=== PATIENT | female | born 1970 | race Caucasian/White ===

== ENCOUNTER → 2017-11-06 12:19 | Outpatient (CLI) | payer OTHER, SELFPAY | PROVIDERS: Family Provider Internal Medicine; PCP Internal Medicine; Visit Provider Internal Medicine | DX: J45.909 Unspecified asthma, uncomplicated (principal) | CPT/HCPCS: 94060; 94727; 94729 ==

== ENCOUNTER 2017-12-02 11:44 | Emergency (ER) | payer OTHER, SELFPAY ==
[2017-12-02 12:08] VITALS: BP 98/72; PULSE 72; RESP 20; TEMP 36.8; O2SAT 98; BMI 40.7
--- NOTE | 2017-12-02 12:17 | HMH.EDUTC ---
[facility] [place] Disposition Clinical Impression: Right-sided low back pain with sciatica Qualifiers: Chronicity: acute Sciatica laterality: sciatica of right side Qualified Code(s): M54.41 - Lumbago with sciatica, right side Disposition: Home, Self-Care Condition on Discharge: Good Prescriptions: Cyclobenzaprine HCl [Cyclobenzaprine 10mg Tab] 10 mg PO TIDP PRN 10 Days #30 tab PRN Reason: back christopher methylPREDNISolone [Medrol] 4 mg PO DAILY 6 Days #21 tab.ds.pk Referrals: Gerardo Erickson [Primary Care Provider] - Time of Disposition: 12:22 Medical Decision Making - Medical Records Medical records reviewed: Yes: I reviewed the patient's medical records. Vital Signs: 12/02/17 12:08 Temperature 98.3 F Temperature Source Temporal Artery Scan Pulse Rate [Left Brachial] 72 Respiratory Rate 20 Blood Pressure [Left Arm] 98/72 Blood Pressure Mean [Left Arm] 80 Blood Pressure Source [Left Arm] Automatic Cuff Blood Pressure Position [Left Arm] Sitting 02 Sat by Pulse Oximetry 98 Oxygen Delivery Method Room Air - Dank Inquiry Pt receiving controlled substance: No [facility] [place] HPI - General Stated complaint: back pain, no ao Time Seen by Provider: 12/02/17 12:04 Mode of Arrival: Ambulatory Source of Information: Patient Limitations: No Limitations Description of Symptoms (Recalled from Triage Doc. by RN): RT LOWER BACK PAIN THAT RADIATES DOWN RT SIDE INTO RT KNEE HEENT Symptoms (Recalled from RN notes): No Resp Symptoms (Recalled from RN notes): No Skin Symptoms (Recalled from RN notes): No MS Symptoms (Recalled from RN notes): Yes (BACK PAIN RADIATING DOWN LEG) Functional Status (Recalled from RN notes): N/A - History of Present Illness Provider Complaint: Back pain X 2 days without injury but now radiating into her right buttock and right thigh. No numbness or tingling. No bowel or bladder complaints. Onset (ago): day(s) (2) Location: back, buttocks, right, lower extremity Severity: moderate Quality: burning, aching Relieving factors: none Exacerbating factors: none Associated symptoms: denies other symptoms Treatments prior to arrival: none - Related Data Home Medications Medication Instructions Recorded Confirmed albuterol sulfate HFA 90 1 puff INHALATION Q6H 10/21/17 mcg/actuation aerosol inhaler cetirizine 10 mg capsule 10 mg PO QDAY 10/21/17 desmopressin 0.1 mg tablet 0.1 mg PO BID 10/21/17 fluticasone 100 mcg-vilanterol 25 1 inh INHALATION Q24H 10/21/17 mcg/dose powder for inhalation fluticasone 50 mcg/actuation nasal 50 mcg INTRANASAL ONCE 10/21/17 spray,suspension hydrocortisone 10 mg tablet 10 mg PO QDAY 10/21/17 levothyroxine 175 mcg tablet 175 mcg PO QDAY tab 10/21/17 nebivolol 5 mg tablet 5 mg PO QDAY 10/21/17 pen injector device 10 subcutaneous See Dose Instructions .ROUTE 10/21/17 .MEDSUPPLY #1 Previous Rx's Medication Instructions Recorded Cyclobenzaprine HCl 10 mg PO TIDP PRN 10 Days #30 tab 12/02/17 [Cyclobenzaprine 10mg Tab] methylPREDNISolone [Medrol] 4 mg PO DAILY 6 Days #21 tab.ds.pk 12/02/17 Allergies Allergy/AdvReac Type Severity Reaction Status Date / Time codeine Allergy Verified 12/02/17 12:16 - Worker's Comp Is this a Worker's Comp case?: No [facility] History I have reviewed the patient's past medical history: Yes Medical History: Reports:: Asthma, Hypertension Denies:: Cancer, Diabetes Mellitus Type 1, Diabetes Mellitus Type 2, MRSA Other Medical History: Reports: Hypothyroidism Laterality Cases: Right: Arthroscopy Knee, Bilateral: Tonsillectomy Other Surgeries: Yes: Other (Lt knee scope, Cholectomy, Pitutary Tumor Resection) Amputation: No Fractures: No - Social History Smoking Status: Never smoker Alcohol Intake: never Substance Use Type: denies use - Psychiatric History Expresses thoughts of harming self/others: None Suicide Plan Description: No Plan Family Hx:: Cancer, Asthma, Heart Attack ROS Obtained: Yes All systems reviewed &
--- NOTE | 2017-12-02 12:20 | ED_ITS ---
[facility] [place] Disposition Clinical Impression: Right-sided low back pain with sciatica Qualifiers: Chronicity: acute Sciatica laterality: sciatica of right side Qualified Code(s) : M54.41 - Lumbago with sciatica, right side Disposition: Home, Self-Care Condition on Discharge: Good Prescriptions: Cyclobenzaprine HCl [Cyclobenzaprine 10mg Tab] 10 mg PO TIDP PRN 10 Days #30 tab PRN Reason: back christopher methylPREDNISolone [Medrol] 4 mg PO DAILY 6 Days #21 tab.ds.pk Referrals: Gerardo Erickson [Primary Care Provider] - Time of Disposition: 12:22 Medical Decision Making - Medical Records Medical records reviewed: Yes: I reviewed the patient's medical records. Vital Signs: 12/02/17 12:08 Temperature 98.3 F Temperature Source Temporal Artery Scan Pulse Rate [Left Brachial] 72 Respiratory Rate 20 Blood Pressure [Left Arm] 98/72 Blood Pressure Mean [Left Arm] 80 Blood Pressure Source [Left Arm] Automatic Cuff Blood Pressure Position [Left Arm] Sitting 02 Sat by Pulse Oximetry 98 Oxygen Delivery Method Room Air - Dank Inquiry Pt receiving controlled substance: No [facility] [place] HPI - General Stated complaint: back pain, no ao Time Seen by Provider: 12/02/17 12:04 Mode of Arrival: Ambulatory Source of Information: Patient Limitations: No Limitations Description of Symptoms (Recalled from Triage Doc. by RN): RT LOWER BACK PAIN THAT RADIATES DOWN RT SIDE INTO RT KNEE HEENT Symptoms (Recalled from RN notes): No Resp Symptoms (Recalled from RN notes): No Skin Symptoms (Recalled from RN notes): No MS Symptoms (Recalled from RN notes): Yes (BACK PAIN RADIATING DOWN LEG) Functional Status (Recalled from RN notes): N/A - History of Present Illness Provider Complaint: Back pain X 2 days without injury but now radiating into her right buttock and right thigh. No numbness or tingling. No bowel or bladder complaints. Onset (ago): day(s) (2) Location: back, buttocks, right, lower extremity Severity: moderate Quality: burning, aching Relieving factors: none Exacerbating factors: none Associated symptoms: denies other symptoms Treatments prior to arrival: none - Related Data Home Medications Medication Instructions Recorded Confirmed albuterol sulfate HFA 90 1 puff INHALATION Q6H 10/21/17 mcg/actuation aerosol inhaler cetirizine 10 mg capsule 10 mg PO QDAY 10/21/17 desmopressin 0.1 mg tablet 0.1 mg PO BID 10/21/17 fluticasone 100 mcg-vilanterol 25 1 inh INHALATION Q24H 10/21/17 mcg/dose powder for inhalation fluticasone 50 mcg/actuation nasal 50 mcg INTRANASAL ONCE 10/21/17 spray,suspension hydrocortisone 10 mg tablet 10 mg PO QDAY 10/21/17 levothyroxine 175 mcg tablet 175 mcg PO QDAY tab 10/21/17 nebivolol 5 mg tablet 5 mg PO QDAY 10/21/17 pen injector device 10 subcutaneous See Dose Instructions .ROUTE 10/21/17 .MEDSUPPLY #1 Previous Rx's Medication Instructions Recorded Cyclobenzaprine HCl 10 mg PO TIDP PRN 10 Days #30 tab 12/02/17 [Cyclobenzaprine 10mg Tab] methylPREDNISolone [Medrol] 4 mg PO DAILY 6 Days #21 tab.ds.pk 12/02/17 Allergies Allergy/AdvReac Type Severity Reaction Status Date / Time codeine Allergy Verified 12/02/17 12:16 - Worker's Comp Is this a Worker's Comp case?: No [facility] History I have
[2017-12-02 12:24] VITALS: BP 98/72; PULSE 72; RESP 20; TEMP 36.8; O2SAT 98
== END 2017-12-02 12:25 | disposition home or self-care (01) ==
PROVIDERS: Emergency Provider Physician Assistant; Family Provider Internal Medicine; PCP Internal Medicine
DX: M54.41 Lumbago with sciatica, right side (principal); I10 Essential (primary) hypertension; J45.909 Unspecified asthma, uncomplicated; Z88.6 Allergy status to analgesic agent
CPT/HCPCS: 99202

== ENCOUNTER 2020-07-24 08:57 | Emergency (ER) | payer OTHER, SELFPAY ==
[2020-07-24 09:16] VITALS: BP 142/77; PULSE 76; RESP 19; TEMP 36.6; O2SAT 98; BMI 37.7
--- NOTE | 2020-07-24 09:24 | HMH.EDUTC ---
[facility] [place] Disposition Clinical Impression: Spasm of muscle of lower back Disposition: Home, Self-Care Condition on Discharge: Good Instructions: Ibuprofen, Cyclobenzaprine, DI for Muscle Spasm Additional Instructions: *Ibuprofen shelly 6 hours with meal as needed for pain/inflammation *Remember you had a Toradol shot in the clinic today, which is similar to Motrin no Motrin or Ibuprofen for the next 8 hours *Not additional anti-inflammatory like motrin, aleve, advil with the above amount of ibuprofen. You can still take Tylenol every 4 hours as needed if you need something else for pain *Ice 20 minutes every 2 hours for the first 48 hours after the initial injury followed by moist heat every 20 minutes 3-4 times a day to affected area *Muscle relaxer every 8 hours as needed for muscle spasms but remember, it WILL cause drowsiness You cannot take it and drive, operate machinery or care for small children. *Keep this area active, no movement leads to more stiffness, However take it easy and avoid heavy lifting pushing or pulling *Follow up with you family doctor if no improvement for further treatment Return if needed Straight to ER if any life threatening symptoms Prescriptions: Cyclobenzaprine HCl [Flexeril 10mg tablet] 10 mg PO TID PRN #15 tab PRN Reason: Muscle Spasm Transmission Status: Received by [facility] #[id number] Referrals: Gerardo Erickson [Primary Care Provider] - As needed Forms: Work/School Release Time of Disposition: 09:47 Medical Decision Making - Dank Inquiry Pt receiving controlled substance: No Dank was queried for this patient: No Vital Signs: 07/24/20 09:16 Temperature 97.8 F Temperature Source Oral Pulse Rate [Radial] 76 Respiratory Rate 19 Blood Pressure [Right Arm] 142/77 H Blood Pressure Mean [Right Arm] 98 Blood Pressure Source [Right Arm] Automatic Cuff Blood Pressure Position [Right Arm] Sitting 02 Sat by Pulse Oximetry 98 Oxygen Delivery Method Room Air Orders (Tests/Meds): ED MEDICATIONS Discontinued Medications Generic Name Dose Route Start Last Admin Trade Name Freq PRN Reason Stop Dose Admin Ketorolac Tromethamine 60 mg 07/24/20 09:43 07/24/20 09:56 Ketorolac 60mg/2ml Vial IM 07/24/20 09:44 60 mg ONCE ONE Administration Methylprednisolone Sodium Succinate 125 mg 07/24/20 09:43 07/24/20 09:55 Methylprednisolone Sod Succ 125mg Vial IM 07/24/20 09:44 125 mg ONCE ONE Administration Medical Decision Narrative: Patient states that she has taken Flexeril before without reaction or complications States that she took Torodol and solu medrol before also without reaction or complications [facility] [place] HPI - General Stated complaint: back spasms Time Seen by Provider: 07/24/20 09:24 Mode of Arrival: Ambulatory Source of Information: Patient Limitations: No Limitations Description of Symptoms (Recalled from Triage Doc. by RN): slipped down one step yesterday and now her back is hurting. No fall. HEENT Symptoms (Recalled from RN notes): No Resp Symptoms (Recalled from RN notes): No Skin Symptoms (Recalled from RN notes): No MS Symptoms (Recalled from RN notes): Yes Functional Status (Recalled from RN notes): wnl - History of Present Illness Provider Complaint: Patient states that she was coming down the steps yesterday when she slipped down a step and landed on her feet but caught herself and feels like she pulled a musle in her lower back States that she went on to work last night and started having muscle spasms so this morning she came in to see if she could get something to help with the spasm denies loss of control of bowel or bladder - Related Data Home Medications Medication Instructions Recorded Confirmed albuterol sulfate 90 mcg/actuation 1 puff INHALATION Q6H 10/21/17 11/25/19 aerosol inhaler cetirizine 10 mg capsule 10 mg PO QDAY 10/21/17 11/25/19 desmopressin 0.1 mg tablet 0.1 mg PO BID 10/21/17 11/25/19 hydrocortisone 10 mg tablet
[2020-07-24 10:13] VITALS: BP 142/77; PULSE 76; RESP 19; TEMP 36.6; O2SAT 98
== END 2020-07-24 10:18 | disposition home or self-care (01) ==
PROVIDERS: Emergency Provider Nurse Practitioner; PCP Internal Medicine
DX: M62.830 Muscle spasm of back (principal); J45.909 Unspecified asthma, uncomplicated; I10 Essential (primary) hypertension; E03.9 Hypothyroidism, unspecified; Z88.5 Allergy status to narcotic agent; Z79.899 Other long term (current) drug therapy
CPT/HCPCS: 96372; 99201

== ENCOUNTER 2021-11-12 12:16 | Emergency (ER) | payer OTHER, SELFPAY ==
[2021-11-12 12:30] VITALS: BP 138/76; PULSE 71; RESP 18; TEMP 36.9; O2SAT 98; BMI 38.7
--- NOTE | 2021-11-12 13:04 | HMH.EDUTC ---
[facility] [place] Disposition Clinical Impression: Sinusitis, acute maxillary Qualifiers: Recurrence: non-recurrent Qualified Code(s): J01.00 - Acute maxillary sinusitis, unspecified Disposition: Home, Self-Care Condition on Discharge: Good Instructions: Sinusitis, DI for Sinusitis Additional Instructions: Start antibiotic patient to take as ordered for a full length of time even if you feel better. Sinus infections do not get better overnight. It may take 2-3 days to notice much improvement so be sure to use conservative measures as discussed for symptoms. Flonase 1 spray each nostril daily to help with nasal congestion, sinus and ear pressure/information Increase fluids Humidifier/vaporizer as needed Tylenol and ibuprofen as needed for fever or pain. If symptoms do not improve or get worse return or be seen in the ER Follow-up with primary care this week Prescriptions: Azithromycin [Zithromax 250mg tab] 250 mg PO DIRECTED #6 tab Prescription Printed Referrals: Gerardo Erickson [Primary Care Provider] - Time of Disposition: 13:10 Medical Decision Making - Dank Inquiry Pt receiving controlled substance: No Vital Signs: 11/12/21 12:30 Temperature 98.4 F Temperature Source Oral Pulse Rate [Right Brachial] 71 Respiratory Rate 18 Blood Pressure [Right Arm] 138/76 Blood Pressure Mean [Right Arm] 96 Blood Pressure Source [Right Arm] Automatic Cuff Blood Pressure Position [Right Arm] Sitting 02 Sat by Pulse Oximetry 98 Oxygen Delivery Method Room Air [facility] [place] HPI - General Chief complaint: Urgent Treatment Center Stated complaint: possible sinus infection Time Seen by Provider: 11/12/21 13:04 Mode of Arrival: Ambulatory Source of Information: Patient Limitations: No Limitations Description of Symptoms (Recalled from Triage Doc. by RN): PATIET C/O FEVER, CONGESTION, SORE THROAT AND WHEEZY SINCE SUNDAY HEENT Symptoms (Recalled from RN notes): Yes Resp Symptoms (Recalled from RN notes): Yes Skin Symptoms (Recalled from RN notes): No MS Symptoms (Recalled from RN notes): No Functional Status (Recalled from RN notes): WNL - History of Present Illness Provider Complaint: 51 yr old female presnets for sinus pressure,congestion, and ear pain - Related Data Home Medications Medication Instructions Recorded Confirmed albuterol sulfate 90 mcg/actuation 1 puff INHALATION Q6H 10/21/17 11/25/19 aerosol inhaler cetirizine 10 mg capsule 10 mg PO QDAY 10/21/17 11/25/19 desmopressin 0.1 mg tablet 0.1 mg PO BID 10/21/17 11/25/19 hydrocortisone 10 mg tablet 10 mg PO QDAY 10/21/17 11/25/19 levothyroxine 175 mcg tablet 175 mcg PO QDAY tab 10/21/17 11/25/19 nebivolol 5 mg tablet 5 mg PO QDAY 10/21/17 11/25/19 pen injector device 10 subcutaneous See Dose Instructions .ROUTE 10/21/17 11/25/19 .MEDSUPPLY #1 albuterol sulfate 5 mg/mL(0.5 %) 2.5 mg INHALATION Q6H 11/25/19 11/25/19 solution for nebulization budesonide-formoterol HFA 160 2 puff INHALATION BID 11/25/19 11/25/19 mcg-4.5 mcg/actuation aerosol inhaler desmopressin 0.2 mg tablet 0.2 mg PO ONCE tab 11/25/19 11/25/19 somatropin 5 mg/1.5 mL (3.3 mg/mL) SQ 11/25/19 11/25/19 subcutaneous cartridge Previous Rx's Medication Instructions Recorded Sulfacetamide Sodium [Bleph-10] 1 drp EYE-BOTH Q3H 7 Days #1 bottle 09/15/19 predniSONE [Deltasone 10mg tablet] 10 mg PO BID 3 Days #6 tab 09/15/19 amoxicillin 500 mg capsule 500 mg PO Q12H 10 Days #20 cap 11/25/19 Cyclobenzaprine HCl [Flexeril 10mg 10 mg PO TID PRN #15 tab 07/24/20 tablet] Azithromycin [Zithromax 250mg 250 mg PO DIRECTED #6 tab 11/12/21 tab] Allergies Allergy/AdvReac Type Severity Reaction Status Date / Time codeine Allergy Verified 11/25/19 10:14 levofloxacin [From Levaquin] Allergy Verified 11/25/19 10:14 - Worker's Comp Is this a Worker's Comp case?: No H History - Hepatitis A Screen Drug use history?: No High risk sexual behaviors?: No History of
[2021-11-12 13:05] VITALS: BP 138/76; PULSE 71; RESP 18; TEMP 36.9; O2SAT 98
== END 2021-11-12 13:11 | disposition home or self-care (01) ==
PROVIDERS: Emergency Provider Nurse Practitioner Family; PCP Internal Medicine
DX: J01.00 Acute maxillary sinusitis, unspecified (principal); I10 Essential (primary) hypertension
CPT/HCPCS: 99202; G0463

== ENCOUNTER 2021-12-14 08:59 | Emergency (ER) | payer OTHER, SELFPAY ==
[2021-12-14 09:17] VITALS: BP 149/96; PULSE 74; RESP 16; TEMP 36.9; O2SAT 98; BMI 35.7
--- NOTE | 2021-12-14 09:52 | HMH.EDUTC ---
[facility] [place] Disposition Clinical Impression: Sinusitis Qualifiers: Sinusitis location: unspecified location Chronicity: acute Recurrence: non-recurrent Qualified Code(s): J01.90 - Acute sinusitis, unspecified Disposition: Home, Self-Care Condition on Discharge: Good Instructions: DI for Sinusitis Additional Instructions: Drink plenty of fluids. Take tylenol or ibuprofen for pain or fever. Take the medications as directed. Follow up with your regular doctor. GO TO THE ER FOR ANY WORSENING SYMPTOMS Prescriptions: Amoxicillin/Potassium Clav [Amox-Clav 875-125 mg Tablet] 1 tab PO BID #20 tab Transmission Status: Received by [facility] #[id number] Benzonatate [Benzonatate 100mg cap] 100 mg PO TIDP PRN #30 cap PRN Reason: Cough Transmission Status: Received by [facility] #[id number] Referrals: Provider,Referral, MD [Primary Care Provider] - Forms: Work/School Release Time of Disposition: 09:54 Medical Decision Making - Medical Records Medical records reviewed: No: I reviewed the patient's medical records. - Dank Inquiry Pt receiving controlled substance: No Vital Signs: 12/14/21 09:17 12/14/21 10:01 Temperature 98.4 F 98.4 F Temperature Source Oral Pulse Rate 74 Pulse Rate [Right Radial] 74 Respiratory Rate 16 16 Blood Pressure 149/96 H Blood Pressure [Right Arm] 149/96 H Blood Pressure Mean [Right Arm] 113 Blood Pressure Source [Right Arm] Automatic Cuff Blood Pressure Position [Right Arm] Sitting 02 Sat by Pulse Oximetry 98 Oxygen Delivery Method Room Air Orders (Tests/Meds): ED MEDICATIONS Discontinued Medications Generic Name Dose Route Start Last Admin Trade Name Freq PRN Reason Stop Dose Admin Ceftriaxone Sodium 1 gm 12/14/21 09:38 12/14/21 09:46 Ceftriaxone 1gm Vial IM 12/14/21 09:39 1 gm ONCE ONE Administration Lidocaine HCl 0 ml 12/14/21 09:38 12/14/21 09:46 Lidocaine 1% 5ml Pf Vial IM 12/14/21 09:39 2 ml ONCE ONE Administration [facility] [place] HPI - General Stated complaint: congestion, sore throat, cough Time Seen by Provider: 12/14/21 09:52 Mode of Arrival: Ambulatory Source of Information: Patient Limitations: No Limitations Description of Symptoms (Recalled from Triage Doc. by RN): C/O sinus congestion, cough, ZACARIAS HEENT Symptoms (Recalled from RN notes): Yes (Sinus congestion, ZACARIAS) Resp Symptoms (Recalled from RN notes): Yes (cough) Skin Symptoms (Recalled from RN notes): No MS Symptoms (Recalled from RN notes): No Functional Status (Recalled from RN notes): n/a - History of Present Illness Provider Complaint: She c/o sinus congestion, sinus pressure and frontal sinus tenderness for the past week. - Related Data Home Medications Medication Instructions Recorded Confirmed albuterol sulfate 90 mcg/actuation 1 puff INHALATION Q6H 10/21/17 11/25/19 aerosol inhaler cetirizine 10 mg capsule 10 mg PO QDAY 10/21/17 11/25/19 desmopressin 0.1 mg tablet 0.1 mg PO BID 10/21/17 11/25/19 hydrocortisone 10 mg tablet 10 mg PO QDAY 10/21/17 11/25/19 levothyroxine 175 mcg tablet 175 mcg PO QDAY tab 10/21/17 11/25/19 nebivolol 5 mg tablet 5 mg PO QDAY 10/21/17 11/25/19 pen injector device 10 subcutaneous See Dose Instructions .ROUTE 10/21/17 11/25/19 .MEDSUPPLY #1 albuterol sulfate 5 mg/mL(0.5 %) 2.5 mg INHALATION Q6H 11/25/19 11/25/19 solution for nebulization budesonide-formoterol HFA 160 2 puff INHALATION BID 11/25/19 11/25/19 mcg-4.5 mcg/actuation aerosol inhaler desmopressin 0.2 mg tablet 0.2 mg PO ONCE tab 11/25/19 11/25/19 somatropin 5 mg/1.5 mL (3.3 mg/mL) SQ 11/25/19 11/25/19 subcutaneous cartridge Previous Rx's Medication Instructions Recorded Sulfacetamide Sodium [Bleph-10] 1 drp EYE-BOTH Q3H 7 Days #1 bottle 09/15/19 predniSONE [Deltasone 10mg tablet] 10 mg PO BID 3 Days #6 tab 09/15/19 amoxicillin 500 mg capsule 500 mg PO Q12H 10 Days #20 cap 11/25/19 Cyclobenzaprine HCl [Flexeril 10mg
[2021-12-14 10:01] VITALS: BP 149/96; PULSE 74; RESP 16; TEMP 36.9; O2SAT 98
== END 2021-12-14 10:02 | disposition home or self-care (01) ==
PROVIDERS: Emergency Provider Nurse Practitioner Family
DX: J01.90 Acute sinusitis, unspecified (principal)
CPT/HCPCS: 96372; 99212; G0463; J0696

== ENCOUNTER 2022-06-05 11:12 | Emergency (ER) | payer OTHER, SELFPAY ==
[2022-06-05 13:10] VITALS: BP 141/78; PULSE 69; RESP 18; TEMP 36.9; O2SAT 96; BMI 36.3
--- NOTE | 2022-06-05 13:34 | EXP.UTC ---
Discharge Plan Disposition Patient Disposition: Home, Self-Care Condition: Good Prescriptions Prescriptions: New amoxicillin-pot clavulanate 875-125 mg Tablet 1 tab PO Q12H 7 Days Qty: 14 0RF No Action desmopressin [DDAVP] 0.1 mg tablet 0.1 mg PO BID levothyroxine [Levoxyl] 175 mcg tablet 175 mcg PO QDAY nebivolol [Bystolic] 5 mg tablet 5 mg PO QDAY hydrocortisone 10 mg tablet 10 mg PO QDAY albuterol sulfate [ProAir HFA] 90 mcg/actuation HFA aerosol inhaler 1 puff INHALATION Q6H cetirizine [Zyrtec] 10 mg capsule 10 mg PO QDAY (DME) pen injector device 10 pen injector See Dose Instructions .ROUTE .MEDSUPPLY Qty: 1 Rx Instructions: As directed somatropin 5 mg/1.5 mL (3.3 mg/mL) cartridge SQ desmopressin 0.2 mg tablet 0.2 mg PO ONCE budesonide-formoterol [Symbicort] 160-4.5 mcg/actuation HFA aerosol inhaler 2 puff INHALATION BID albuterol sulfate 5 mg/mL solution for nebulization 2.5 mg INHALATION Q6H amoxicillin 500 mg capsule 500 mg PO Q12H 10 Days Qty: 20 0RF benzonatate 100 MG capsule 100 mg PO TIDP PRN (Reason: Cough) Qty: 30 0RF amoxicillin-pot clavulanate 1 EACH tablet 1 tab PO BID Qty: 20 0RF prednisone 10 MG tablet 10 mg PO BID 3 Days Qty: 6 0RF sulfacetamide sodium 5 ML drops 1 drp EYE-BOTH Q3H 7 Days Qty: 1 0RF cyclobenzaprine 10 MG tablet 10 mg PO TID PRN (Reason: Muscle Spasm) Qty: 15 0RF azithromycin 250 MG tablet 250 mg PO DIRECTED Qty: 6 0RF Rx Instructions: Take two (2) tablets on day #1, then one (1) tablet day #2 thru #5 Referrals Follow up/Referrals: Provider,Referral, MD [Primary Care Provider] - See instructions Clinical Impressions Clinical Impression: Sinusitis Instructions Patient Instructions: Sinus Headache, DI for Sinusitis Discharge ED Provider: Echo Acosta [facility] [place] HPI General Stated complaint: sinus infection Mode of Arrival: Ambulatory Source of Information: Patient Limitations: No Limitations Time Seen by Provider: 06/05/22 13:45 Description of Symptoms (Recalled from Triage Doc. by RN): PATIENT C/O CONGESTION AND DRY COUGH X 3 DAYS HEENT Symptoms (Recalled from RN notes): Yes Resp Symptoms (Recalled from RN notes): Yes Skin Symptoms (Recalled from RN notes): No MS Symptoms (Recalled from RN notes): No Functional Status (Recalled from RN notes): WNL History of Present Illness Provider Complaint: Patient states that she gets sinus infections several times a year and feels like she has one now States that she has been having pain and pressure behind her eyes that has continued to get worse over the last week States that today she noticed her mucous had changed Related Data Home Medications Medication Instructions Recorded Confirmed albuterol sulfate 90 mcg/actuation 1 puff inhalation Q6H 10/21/17 11/25/19 aerosol inhaler (ProAir HFA) cetirizine 10 mg capsule (Zyrtec) 10 mg PO QDAY 10/21/17 11/25/19 desmopressin 0.1 mg tablet (DDAVP) 0.1 mg PO BID 10/21/17 11/25/19 hydrocortisone 10 mg tablet 10 mg PO QDAY 10/21/17 11/25/19 levothyroxine 175 mcg tablet 175 mcg PO QDAY 10/21/17 11/25/19 (Levoxyl) nebivolol 5 mg tablet (Bystolic) 5 mg PO QDAY 10/21/17 11/25/19 pen injector device 10 subcutaneous ##1 10/21/17 11/25/19 albuterol sulfate 5 mg/mL(0.5 %) 2.5 mg inhalation Q6H 11/25/19 11/25/19 solution for nebulization budesonide-formoterol HFA 160 2 puff inhalation BID 11/25/19 11/25/19 mcg-4.5 mcg/actuation aerosol inhaler (Symbicort) desmopressin 0.2 mg tablet 0.2 mg PO ONCE 11/25/19 11/25/19 somatropin 5 mg/1.5 mL (3.3 mg/mL) SQ 11/25/19 11/25/19 subcutaneous cartridge Previous Rx's Medication Instructions Recorded prednisone 10 mg tablet 10 mg PO BID 3 days #6 tabs 09/15/19 sulfacetamide sodium 10 % eye drops 1 drp EYE-BOTH Q3H 7 days ##1 09/15/19 amoxicillin 500 mg capsule 500 mg PO Q12H sinusitis 10 days 0
[2022-06-05 14:05] VITALS: BP 141/78; PULSE 69; RESP 18; TEMP 36.9; O2SAT 96
== END 2022-06-05 14:22 | disposition home or self-care (01) ==
PROVIDERS: Emergency Provider Nurse Practitioner
DX: J01.90 Acute sinusitis, unspecified (principal)
CPT/HCPCS: 96372; 99212; G0463

== ENCOUNTER 2022-06-08 18:15 | Observation (INO) | payer BC, SELFPAY ==
[2022-06-08] VITALS (12 sets, daily range): BP systolic 81–153; BP diastolic 23–115; PULSE 72–142; RESP 18–31; TEMP 37.7–38.3; O2SAT 92–98; BMI 36.3; BMI 36.1
--- NOTE | 2022-06-08 18:30 | XR_ITS ---
PROCEDURE INFORMATION: Exam: XR Chest Exam date and time: 06/08/2022 6:29 PM Age: 52 years old Clinical indication: Pain; Chest pressure; Additional info: SOB TECHNIQUE: Imaging protocol: Radiologic exam of the chest. Views: 2 views. COMPARISON: No relevant prior studies available. FINDINGS: Lungs: Asymmetric hazy right central and lower pulmonary airspace opacity, and asymmetric interstitial prominence in the right lung compared with left, suspicious for pneumonia, less likely would be asymmetric edema. Lung volumes appear normal. Pleural spaces: Likely layering right pleural effusion; lateral view shows some trace fluid in the minor fissure, and there is wedge-shaped 9 cm opacity in the anterior lower chest which is probably some fluid tracking up the major fissure. No pleural effusion is seen on the left. No pneumothorax. Heart/Mediastinum: The heart is not enlarged. Asymmetric right hilar soft tissue fullness compared with left, which could be due to underlying adenopathy or perihilar pneumonia/edema. Bones/joints: Osteopenia/osteoporosis. Thoracic kyphosis with mild chronic appearing anterior wedge deformities. Multilevel disc narrowing and spondylosis. Soft tissues: Right upper quadrant abdominal surgical clips, correlate for cholecystectomy. IMPRESSION: 1. Hazy airspace disease in the central and lower right lung, correlate for pneumonia versus asymmetric edema. 2. Right pleural effusion. 3. Slight asymmetric right hilar fullness, which could be due to perihilar infiltrate or adenopathy.
--- NOTE | 2022-06-08 19:08 | EXP.UTC ---
Discharge Plan Disposition Patient Disposition: Admitted As Inpatient Condition: Fair Prescriptions Prescriptions: No Action desmopressin [DDAVP] 0.1 mg tablet 0.1 mg PO BID levothyroxine [Levoxyl] 175 mcg tablet 175 mcg PO DAILY hydrocortisone 10 mg tablet 10 mg PO BID albuterol sulfate [ProAir HFA] 90 mcg/actuation HFA aerosol inhaler 1 puff INHALATION Q6H cetirizine [Zyrtec] 10 mg capsule 10 mg PO DAILY (DME) pen injector device 10 pen injector See Dose Instructions .ROUTE .MEDSUPPLY Qty: 1 Rx Instructions: As directed desmopressin 0.2 mg tablet 0.2 mg PO ONCE budesonide-formoterol [Symbicort] 160-4.5 mcg/actuation HFA aerosol inhaler 2 puff INHALATION BID albuterol sulfate 5 mg/mL solution for nebulization 2.5 mg INHALATION Q6H amoxicillin-pot clavulanate 875-125 mg tablet 875 tab PO BID Label Comments: TAKE 1 TABLET BY MOUTH TWICE DAILY Norditropin 8 mg Recon Soln 0.8 mg SQ DAILY ondansetron 4 mg Tablet,Disintegrating 4 mg PO Q6H PRN (Reason: Nausea) nebivolol [Bystolic] 5 mg Tablet 5 mg PO DAILY Zyrtec 10 mg Capsule 10 mg PO DAILY Referrals Follow up/Referrals: Gerardo Erickson MD [Primary Care Provider] - See instructions Clinical Impressions Clinical Impression: CAP (community acquired pneumonia), SIRS (systemic inflammatory response syndrome), Obesity (BMI 30-39.9), Atrial arrhythmia Discharge ED Provider: Ramesh Haskins [facility] HPI <Elroy Dior APRN - Last Filed: 06/08/22 20:49> General Chief complaint: Shortness of Breath/Dyspnea Stated complaint: SOA, CONGESTION, Mode of Arrival: Ambulatory Source of Information: Patient Limitations: No Limitations Time Seen by Provider: 06/08/22 19:33 Description of Symptoms (Recalled from Triage Doc. by RN): pt comes in with complaints of congestion, shortness of air, dehydration, nausea, vomitting. pt was seen here sunday and sunday and pt states that she is not getting any better. HEENT Symptoms (Recalled from RN notes): Yes Resp Symptoms (Recalled from RN notes): Yes Skin Symptoms (Recalled from RN notes): No MS Symptoms (Recalled from RN notes): No Functional Status (Recalled from RN notes): n/a History of Present Illness Provider Complaint: She c/o cough and chest congestion for the past 1 week. She denies fever or chills. She has a history of copd and she gets pneumonia fairly frequently. She denies any known covid-19 exposure. Related Data Home Medications Medication Instructions Recorded Confirmed albuterol sulfate 90 mcg/actuation 1 puff inhalation Q6H COPD 10/21/17 06/08/22 aerosol inhaler (ProAir HFA) cetirizine 10 mg capsule (Zyrtec) 10 mg PO DAILY allergies 10/21/17 06/08/22 desmopressin 0.1 mg tablet (DDAVP) 0.1 mg PO BID diabetes insipidus 10/21/17 06/08/22 hydrocortisone 10 mg tablet 10 mg PO BID adrenal insufficiency 10/21/17 06/08/22 levothyroxine 175 mcg tablet 175 mcg PO DAILY hypothyroidism 10/21/17 06/08/22 (Levoxyl) pen injector device 10 subcutaneous ##1 10/21/17 11/25/19 albuterol sulfate 5 mg/mL(0.5 %) 2.5 mg inhalation Q6H COPD 11/25/19 06/08/22 solution for nebulization budesonide-formoterol HFA 160 2 puff inhalation BID Asthma 11/25/19 06/08/22 mcg-4.5 mcg/actuation aerosol inhaler (Symbicort) desmopressin 0.2 mg tablet 0.2 mg PO ONCE diabetes insipidus 11/25/19 06/08/22 amoxicillin 875 mg-potassium 875 tab PO BID sinusitis 06/08/22 06/08/22 clavulanate 125 mg tablet cetirizine 10 mg capsule (Zyrtec) 10 mg PO DAILY allergies 06/08/22 06/08/22 nebivolol 5 mg tablet (Bystolic) 5 mg PO DAILY htn 06/08/22 06/08/22 ondansetron 4 mg disintegrating 4 mg PO Q6H PRN Nausea 06/08/22 06/08/22 tablet somatropin 8 mg subcutaneous 0.8 mg SQ DAILY adrenal 06/08/22 06/08/22 solution insufficiency Allergies Allergy/AdvReac Type Severity Reaction Status Date / Time codeine Allergy Verified 11/25/19 10:14 levofloxaci
[2022-06-08 20:39] LABS: Coronavirus 19, PCR Not Detected (NotDetected); Influenza A, PCR Not Detected (NotDetected); Influenza B, PCR Not Detected (NotDetected); Microscopic, Urine URINE MICROSCOPIC (MICROSCOPIC)
[2022-06-08 20:40] LABS: Basophils % 0.3 % (0.1-2.0); Eosinophils # 0.4 K/mm3 (0.0-0.4); Eosinophils % 3.2 % (0.1-12.0); Hematocrit 42.2 % (37.0-47.0); Hemoglobin 13.2 g/dL (12.2-16.2); Lymphocytes # 1.9 K/mm3 (0.7-4.5); Lymphocytes % 13.8 % (10-50); Mean Corpuscular HGB Conc 31.2 g/dL (31.8-35.4); Mean Corpuscular Hemoglobin 28.3 pg (27.0-31.2); Mean Corpuscular Volume 90.6 fl (81-99); Mean Platelet Volume 7.7 fl (7.4-10.4); Monocytes # 0.4 K/mm3 (0.1-1.0); Monocytes % 2.6 % (1.7-9.3); Neutrophils # 10.8 K/mm3 (1.8-7.8); Neutrophils % 80.1 % (37.0-80.0); Platelet Count 433 K/mm3 (142-424); Red Blood Count 4.66 M/mm3 (4.20-5.40); Red Cell Distribution Width 13.2 % (11.5-17.5); White Blood Count 13.5 K/mm3 (4.8-10.8)
[2022-06-08 20:43] LABS: Appearance,Urine CLEAR (Clear); Bilirubin,Urine Negative (Negative); Blood, Urine Negative (Negative); Color,Urine YELLOW (Yellow); Glucose,Urine (UA) Negative (Negative); Ketones,Urine Negative (Negative); Leukocyte Esterase,Urine 1+ (Negative); Nitrate,Urine Negative (Negative); Protein,Urine Negative (Negative); Specific Gravity, Urine <= 1.005 (1.005-1.030); Urobilinogen,Urine 0.2 EU/dl (0.2)
[2022-06-08 20:45] LABS: Urine Pregnancy, HCG Qual. Negative (Negative)
[2022-06-08 20:49] LABS: Alanine Aminotransferase 12 U/L (12-78); Albumin/Globulin Ratio 1.2 (1.1-1.8); Alkaline Phosphatase 145 U/L (38-126); Anion Gap 8.7 mEq/L (5-15); Aspartate Amino Transferase 21 U/L (14-36); Bilirubin,Total 1.1 mg/dl (0.2-1.3); Blood Urea Nitrogen 8 mg/dl (7-17); Calcium 8.6 mg/dl (8.4-10.2); Carbon Dioxide 34 mmol/L (22.0-30.0); Chloride 102 mmol/L (98-107); Creatinine Clearance Estimated 139 mL/min (50-200); Estimated Glomerular Filt Rate 76 ml/min (>60); GFR (African American) 92 ML/MIN (>60); Globulin 3.3 g/dL (1.3-3.2); Glucose 100 mg/dl (74-100); Potassium 3.7 mmoL/L (3.5-5.1); Sodium 141 mmol/L (136-145); Total Protein,Serum 7.3 g/dl (6.3-8.2)
[2022-06-08 20:50] LABS: Bacteria,Urine Trace /lpf; Lactic Acid 0.9 mmol/L (0.7-2.1); RBC,Urine Occasional #/hpf (0-3)
[2022-06-08 20:55] LABS: C-Reactive Protein 90.3 mg/L (0-4)
[2022-06-08 21:04] LABS: ABG Base Excess 1.3 mmol/L (-2.4-2.3); ABG HCO3 25.8 mmhg (22.0-26.0); ABG Oxygen Saturation 96 % (90-100); ABG PCO2 41.3 mmhg (35.0-45.0); ABG PH 7.41 mmol/L (7.35-7.45); ABG PO2 76.9 mmhg (80-100); ABG TCO2 27.1 mmhg (23-27)
[2022-06-08 21:05] LABS: Allen's Test Acceptable; Oxygen 2LPM %; Source Right Radial
[2022-06-08 21:08] LABS: Procalcitonin 0.428 ng/mL (0.0-2.0)
[2022-06-08 21:16] LABS: Erythrocyte Sedimentation Rate 47 mm/hr (0-20)
--- NOTE | 2022-06-08 21:39 | ECG_ITS ---
APPROVED REPORT Exam: Resting ECG HR:137 bpm ECG Measurements Heart Rate 137 AXES QRSd 98 QRS 64 QT 292 T 59 QTc 372 Conclusion Sinus Tachycardia ABNORMAL RHYTHM ECG UNCONFIRMED REPORT Electronically signed by : Harsh Skelton MD 06/09/2022 17:09:02
--- NOTE | 2022-06-08 22:07 | PC.NURSE ---
patient was requesting her night time hydrocortisone, however, pt has already had solumedrol so md wants nighttime hydrocortisone held.
--- NOTE | 2022-06-08 22:08 | PC.NURSE ---
patient was noted to have an elevated heartrate at 2140. Patient was c/o being unable to breathe and having chest pain with diaphoresis. was immediately notified along with respiratory therapy. Oxygen source changed from 2l nasal cannula to a nonrebreather. Pt was breathing roughly 30 times per minute. Oxygen was 91%. was notified by at 2144 with an image of a new ekg performed. EKG indicated sinus tach as p waves were noted by md and cardiology. 2.5 IV metoprolol ordered per MD with 40mg IV lasix. Patient tolerated the medication well and her heartrate decreased from 130 NS to 88 NS. BNP and troponin's were added to lab order.
--- NOTE | 2022-06-08 22:17 | PC.NURSE ---
Spoke with Mic at [facility] regarding patients hydrocortisone dosing for pm. Per [facility], the 10mg hydrocortisone is a small dose and it would be safe to skip that dose for tonight.
[2022-06-08 22:30] LABS: T4 (Thyroxine) 11.9 ug/dl (5.53-11.0)
[2022-06-08 22:34] LABS: Troponin I < 0.01 ng/ml (0.00-0.034)
--- NOTE | 2022-06-08 22:38 | PC.NURSE ---
PT CHANGED FROM SIMPLE MASK TO O2 5L NC. WCM.
[2022-06-08 22:43] LABS: Thyroid Stimulating Hormone < 0.02 uIU/mL (0.465-4.68)
[2022-06-09] VITALS (11 sets, daily range): BP systolic 100–137; BP diastolic 56–67; PULSE 70–98; RESP 16–22; TEMP 36.6–37; O2SAT 92–96; BMI 36.9
--- NOTE | 2022-06-09 00:37 | PC.NURSE ---
PT ARRIVED TO FLOOR VIA WHEEL CHAIR AT THIS TIME
--- NOTE | 2022-06-09 05:57 | PC.NURSE ---
Patient admitted to floor. Patient a&o x4. Patient tolerating 2l nc with sats above 90%. Expiatory ronchi noted bilaterally. VSS.
[2022-06-09 06:55] LABS: Basophils % 0.2 % (0.1-2.0); Eosinophils % 0.3 % (0.1-12.0); Hematocrit 44.9 % (37.0-47.0); Hemoglobin 13.7 g/dL (12.2-16.2); Lymphocytes # 0.6 K/mm3 (0.7-4.5); Lymphocytes % 4.2 % (10-50); Mean Corpuscular HGB Conc 30.5 g/dL (31.8-35.4); Mean Corpuscular Volume 91.9 fl (81-99); Mean Platelet Volume 9.4 fl (7.4-10.4); Monocytes # 0.2 K/mm3 (0.1-1.0); Monocytes % 1.1 % (1.7-9.3); Neutrophils # 13.6 K/mm3 (1.8-7.8); Neutrophils % 94.3 % (37.0-80.0); Platelet Count 442 K/mm3 (142-424); Red Blood Count 4.88 M/mm3 (4.20-5.40); Red Cell Distribution Width 13.2 % (11.5-17.5); White Blood Count 14.4 K/mm3 (4.8-10.8)
[2022-06-09 07:04] LABS: MANUAL DIFFERENTIAL MANUAL DIFFERENTIAL (MANUAL DIFF)
[2022-06-09 07:24] LABS: Lymphocytes % 8 % (10-50); Monocytes % 1 % (2-9); Neutrophils % 91 % (42-76); Platelet Estimate Normal; RBC Morphology Normal; Total Cells Counted 100
[2022-06-09 07:25] LABS: Chloride 107 mmol/L (98-107); Sodium 145 mmol/L (136-145)
[2022-06-09 07:26] LABS: Potassium 4.3 mmoL/L (3.5-5.1)
[2022-06-09 07:29] LABS: Anion Gap 15.3 mEq/L (5-15); Blood Urea Nitrogen 14 mg/dl (7-17); Calcium 8.7 mg/dl (8.4-10.2); Carbon Dioxide 27 mmol/L (22.0-30.0); Creatinine Clearance Estimated 142 mL/min (50-200); Estimated Glomerular Filt Rate 76 ml/min (>60); GFR (African American) 92 ML/MIN (>60); Glucose 175 mg/dl (74-100)
--- NOTE | 2022-06-09 07:35 | P.CONPHA_ITS ---
[facility] Pharmacy VTE Monitoring Patient Demographics Admission date: 06/09/22 Report Date: 06/09/22 Time: 07:35 Patient Allergies codeine Allergy (Verified 11/25/19 10:14) levofloxacin [From Levaquin] Allergy (Verified 11/25/19 10:14) Height: 1.7 m Weight: 106.764 kg Current Active Problems (Updated 06/08/22 @ 23:14 by Ramesh Haskins MD) CAP (community acquired pneumonia) (Acute) SIRS (systemic inflammatory response syndrome) (Acute) Obesity (BMI 30-39.9) (Acute) Atrial arrhythmia (Acute) VTE Risk Labs: VTE Related Lab Results Hgb 13.7 g/dL (12.2-16.2) 06/09/22 05:30 Hct 44.9 % (37.0-47.0) 06/09/22 05:30 Plt Count 442 K/mm3 (142-424) H 06/09/22 05:30 BUN 14 mg/dl (7-17) D 06/09/22 05:30 Creatinine 0.80 mg/dl (0.52-1.04) 06/09/22 05:30 Estimated Creat Clear 142 mL/min (50-200) 06/09/22 05:30 Was VTE Risk Assessment Performed: Yes VTE Score: 4 VTE Risk Level: Low Risk Prophylaxis VTE Prophylaxis Ordered?: Yes Types of VTE Prophylaxis: TEDS Thigh High Location of Applied Device: Bilateral Lower Extremeties
[2022-06-09 08:09] LABS: Magnesium 1.8 mg/dl (1.6-2.3)
--- NOTE | 2022-06-09 08:36 | EXP.HP ---
History of Present Illness *Admission Date: 06/09/22 *Reason for visit:: shortness of breath *History of present illness: Ms. 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 She states she was being treated with Augmentin for sinus infection for the previous 3 to 4 days. Shortness of breath had sudden onset and was severe. She tried her duo nebs at home with no improvement. She was able to drink fluids on Sunday but she was unable to eat. She denied having any fever, nausea, vomiting, or diarrhea. With evaluation in the emergency room she was found to have a temperature of 100.9 ABGs showed a pH of 7.41 PCO2 of 41.3, PO2 of 76.9 and a bicarb of 25.8. She did developed an atrial arrhythmia with a DuoNeb in the ER. Patient states she felt like she was going to with a slow heart rate and decrease in her O2 sats. Documentation from the ER indicates that she received metoprolol resulting in a sinus rhythm. EKG during episode showed SVT at 150 Chest x-ray revealed the following:IMPRESSION: 1. Hazy airspace disease in the central and lower right lung, correlate for pneumonia versus asymmetric edema. 2. Right pleural effusion. 3. Slight asymmetric right hilar fullness, which could be due to perihilar infiltrate or adenopathy. on admission white blood cell count was 13,500 and this a.m. is 14,400. This a.m. patient is still somewhat short of breath with any activity. She had to take a rest from eating her breakfast. She has some cough which is mostly nonproductive. She was able to sleep some during the night. She denies any chest pain. [facility] Medical History (Updated 06/09/22 @ 21:36 by Alverto Becker MD) Acute asthma exacerbation Acute respiratory failure with hypoxia Adrenal insufficiency Asthma COPD (chronic obstructive pulmonary disease) Diabetes insipidus History of pneumonia Hypertension Panhypopituitarism Thyroid disease Surgical History (Updated 06/09/22 @ 08:55 by Olesya Armenta APRN) History of cholecystectomy History of surgical removal of pituitary gland History of tonsillectomy S/P tympanic tube insertion Family History (Updated 06/09/22 @ 08:56 by Olesya Armenta APRN) Coronary artery disease Social History Smoking Status: Never smoker alcohol intake: never substance use type: denies use current occupational status: employed Travel in the last 8 weeks: None household members: family housing: house Review of Systems Constitutional Constitutional: Denies body ache(s), Reports fatigue, Denies fever(s) and Reports headache(s) Eyes Eyes: Denies change in vision ENT Ears, Nose, Mouth, and Throat: Denies otalgia, Reports headache(s) and Denies sore throat *Cardiovascular Cardiovascular: Reports chest pain ( with episode in the emergency room), Reports dyspnea, Reports dyspnea on exertion and Reports leg edema *Respiratory Respiratory: Reports chest congestion, Reports cough, Reports dyspnea and Reports dyspnea on exertion *Gastrointestinal Gastrointestinal: Denies abdominal pain, Denies change in stool character, Denies heartburn, Denies nausea and Denies vomiting *Genitourinary Genitourinary: Denies difficulty voiding *Musculoskeletal Musculoskeletal: Denies abnormal gait and Denies muscle weakness *Neurologic Neurologic: Denies abnormal gait, Reports headache(s) and Denies paresthesias Endocrine Endocrine: Reports fatigue Meds Home Medications and Allergies Home Medications Medication Instructions Recorded Confirmed Type albuterol sulfate 90 mcg/actuation 1 puff inhalation Q6H Asthma 10/21/17 06/08/22 History aerosol i
--- NOTE | 2022-06-09 09:39 | EXP.PULM.CON ---
History of Present Illness History of present illness: Ms. Copeland is a 52-year-old female with reported history of asthma panhypopituitarism, recent history of sinusitis status post Augmentin presents worsening respiratory distress shortness of breath and was admitted for further management and pulmonary was consulted. Dyspnea worsens exertional pain relieved by taking rest PFSH [facility] Medical History (Updated 06/09/22 @ 12:02 by Emery Dutta MD) Acute asthma exacerbation Acute respiratory failure with hypoxia Adrenal insufficiency Asthma COPD (chronic obstructive pulmonary disease) Diabetes insipidus History of pneumonia Hypertension Panhypopituitarism Thyroid disease Surgical History (Updated 06/09/22 @ 08:55 by Olesya Armenta APRN) History of cholecystectomy History of surgical removal of pituitary gland History of tonsillectomy S/P tympanic tube insertion Family History (Updated 06/09/22 @ 08:56 by Olesya Armenta APRN) Other Coronary artery disease Social History Smoking Status: Never smoker alcohol intake: never substance use type: denies use current occupational status: employed Travel in the last 8 weeks: None household members: family housing: house Review of Systems Constitutional Constitutional: Reports fatigue and Reports fever(s) Eyes Eyes: Denies eye discharge, Denies dry eyes, Denies irritation and Denies itchy eyes ENT Ears, Nose, Mouth, and Throat: Denies lip swelling and Denies throat swelling *Cardiovascular Cardiovascular: Reports dyspnea and Reports dyspnea on exertion *Respiratory Respiratory: Reports chest congestion, Reports cough, Reports dyspnea, Reports dyspnea on exertion, Reports excessive phlegm production and Reports wheezing *Gastrointestinal Gastrointestinal: Denies abdominal pain, Denies belching and Denies cramping *Musculoskeletal Musculoskeletal: Reports muscle weakness *Neurologic Neurologic: Denies paresthesias Psychiatric Psychiatric: Denies homicidal ideation and Denies suicidal ideation Endocrine Endocrine: Reports fatigue and Denies heat intolerance Hematologic/Lymphatic Hematologic/Lymphatic: Denies easy bleeding and Denies lymphadenopathy Allergic/Immunologic Allergic/Immunologic: Denies itchy eyes, Denies lip swelling, Denies throat swelling and Reports wheezing Pulmonology Exam Inpatient Vital signs and Labs for Last 24 Hours: Temp Pulse Resp BP Pulse Ox 97.8 F 75 18 137/58 L 92 L 06/09/22 04:00 06/09/22 04:00 06/09/22 04:00 06/09/22 04:00 06/09/22 04:00 Laboratory Results - last 24 hr 06/08/22 20:21: WBC 13.5 H, RBC 4.66, Hgb 13.2, Hct 42.2, MCV 90.6, MCH 28.3, MCHC 31.2 L, RDW 13.2, Plt Count 433 H, MPV 7.7, Neut % (Auto) 80.1 H, Lymph % (Auto) 13.8, [place] % (Auto) 2.6, Eos % (Auto) 3.2, Baso % (Auto) 0.3, Neut # (Auto) 10.8 H, Lymph # (Auto) 1.9, [place] # (Auto) 0.4, Eos # (Auto) 0.4, Baso # (Auto) 0.0, ESR 47 H 06/08/22 20:21: Sodium 141, Potassium 3.7, Chloride 102, Carbon Dioxide 34 H, Anion Gap 8.7, BUN 8, Creatinine 0.80, Estimated Creat Clear 139, Estimated GFR 76, Est GFR ( Amer) 92, Glucose 100, Calcium 8.6, Total Bilirubin 1.1, AST 21, ALT 12, Alkaline Phosphatase 145 H, C-Reactive Protein 90.3 H, Total Protein 7.3, Albumin 4.0, Globulin 3.3 H, Albumin/Globulin Ratio 1.2, Procalcitonin 0.428 06/08/22 20:21: Lactate 0.9 06/08/22 20:21: SARS-CoV-2 (PCR) Not detected, Influenza A Untype (PCR) Not detected, Influenza Type B (PCR) Not detected 06/08/22 20:21: Urine Color Yellow, Urine Appearance Clear, Urine pH 7.0, Ur Specific [place] <= 1.005, Urine Protein Negative, Urine Glucose (UA) Negative, Urine Ketones Negative, Urine Blood Negative, Urine Nitrate Negative, Urine Bilirubin Negative, Urine Urobilinogen 0.2, Ur Leukocyte Esterase 1+ A, Urine RBC Occasional, Urine WBC 5-10, Ur Squamous Epith Cells 5-10, Urine Bacteria Trace 06/08/22 20:21: Urine HCG, Qual Negative 06/08/22 2
--- NOTE | 2022-06-09 09:46 | ECG_ITS ---
APPROVED REPORT Exam: Resting ECG HR:75 bpm ECG Measurements Heart Rate 75 AXES MT 176 P 59 QRSd 118 QRS 72 QT 433 T 52 QTc 461 Conclusion SINUS RHYTHM POSSIBLE LATERAL MYOCARDIAL INFARCTION , PROBABLY OLD [30 ms Q WAVE IN I/aVL/V5/V6] BORDERLINE ECG UNCONFIRMED REPORT Electronically signed by : Harsh Skelton MD 06/10/2022 16:28:01
--- NOTE | 2022-06-09 12:41 | PC.NURSE ---
room air saturation 93%
--- NOTE | 2022-06-09 16:06 | PC.NURSE ---
PT IS SITTING UP IN THE CHAIR. ALERT AND ORIENTED X4. AMBULATES IN THE ROOM AND TO THE BATHROOM. ROOM AIR SATURATION 93%. LUNG SOUNDS HAVE SCATTERED WHEEZES. MILD SWELLING NOTED TO BLE. ABDOMEN SOFT/NON TENDER WITH ACTIVE BOWEL SOUNDS. VSS. WILL CONTINUE TO MONITOR.
[2022-06-10] VITALS (15 sets, daily range): BP systolic 121–173; BP diastolic 54–84; PULSE 68–100; RESP 16; TEMP 36.6–37; O2SAT 91–98; BMI 36.9
--- NOTE | 2022-06-10 04:47 | PC.NURSE ---
Patient a&o x4. Patient states she is feeling much better. She has tolerated RA throughout shift. Patient able to shower independently. VSS. Administered ABX per dec. scattered wheezing and ronchi noted.
[2022-06-10 07:53] LABS: Basophils % 0.1 % (0.1-2.0); Eosinophils # 0.1 K/mm3 (0.0-0.4); Eosinophils % 0.7 % (0.1-12.0); Hematocrit 36.9 % (37.0-47.0); Hemoglobin 11.4 g/dL (12.2-16.2); Lymphocytes # 0.7 K/mm3 (0.7-4.5); Mean Corpuscular HGB Conc 30.8 g/dL (31.8-35.4); Mean Corpuscular Hemoglobin 27.7 pg (27.0-31.2); Mean Platelet Volume 8.5 fl (7.4-10.4); Monocytes # 0.2 K/mm3 (0.1-1.0); Monocytes % 1.4 % (1.7-9.3); Neutrophils # 16.1 K/mm3 (1.8-7.8); Neutrophils % 93.9 % (37.0-80.0); Platelet Count 431 K/mm3 (142-424); Red Cell Distribution Width 13.3 % (11.5-17.5); White Blood Count 17.1 K/mm3 (4.8-10.8)
[2022-06-10 07:56] LABS: MANUAL DIFFERENTIAL MANUAL DIFFERENTIAL (MANUAL DIFF)
[2022-06-10 08:08] LABS: Lymphocytes % 3 % (10-50); Neutrophils % 97 % (42-76); Total Cells Counted 100
[2022-06-10 08:09] LABS: Platelet Estimate Slight Increase; RBC Morphology Normal
--- NOTE | 2022-06-10 09:58 | EXP.PN ---
Subjective *Date: 06/10/22 *Time: 09:58 Interval history: She rested better last night and feels better this morning. States her lungs do not feel tight . She still has cough that is mostly nonproductive. No chest pain. Exam Data for Last 24 hours Vital signs and Labs for Last 24 Hours: Temp Pulse Resp BP Pulse Ox 98.3 F 94 H 16 125/64 92 L 06/10/22 08:00 06/10/22 08:00 06/10/22 08:00 06/10/22 08:00 06/10/22 08:00 Laboratory Results - last 24 hr 06/10/22 06:35: WBC 17.1 H, RBC 4.10 L, Hgb 11.4 L, Hct 36.9 L, MCV 90.0, MCH 27.7, MCHC 30.8 L, RDW 13.3, Plt Count 431 H, MPV 8.5, Neut % (Auto) 93.9 H, Lymph % (Auto) 4.0 L, [place] % (Auto) 1.4 L, Eos % (Auto) 0.7, Baso % (Auto) 0.1, Neut # (Auto) 16.1 H, Lymph # (Auto) 0.7, [place] # (Auto) 0.2, Eos # (Auto) 0.1, Baso # (Auto) 0.0, Total Counted 100, Neutrophils % (Manual) 97 H, Lymphocytes % (Manual) 3 L, Platelet Estimate Slight increase, RBC Morphology Normal I & O for Last 24 hours: Intake & Output 06/07/22 06/08/22 06/09/22 06/10/22 11:59 11:59 11:59 11:59 Intake Total 855 / 855 2604 / 2604 Output Total 5902 / 5902 1400 / 1400 Balance -5047 / -5047 1204 / 1204 Weight 235 lb 3.732 oz 235 lb 3.732 oz Microbiology Reports for the Last 24 Hours: Microbiology 06/08/22 20:21 Urine,Clean Catch Urine Culture - Preliminary NO GROWTH AFTER 24 HOURS Constitutional Comments: She is sitting up in a chair and appears in no respiratory distress. Color is good. Chest reveals bilateral crackles and a few faint wheezes throughout both lung lui. Heart is regular. Extremities no edema. Assessment and Plan *Assessment and plan (1) CAP (community acquired pneumonia): Status: Acute Category: Medical Code(s): J18.9 - Pneumonia, unspecified organism (2) Atrial arrhythmia: Status: Acute Category: Medical Code(s): I49.8 - Other specified cardiac arrhythmias (3) Panhypopituitarism: Status: Acute Category: Medical Code(s): E23.0 - Hypopituitarism (4) Asthma: Status: Acute Category: Medical Code(s): J45.909 - Unspecified asthma, uncomplicated (5) Obesity (BMI 30-39.9): Status: Acute Category: Medical Code(s): E66.9 - Obesity, unspecified Assessment and plan all Dx Assessment and Plan All Dx:: White count elevated to 17,000 today likely due to steroids. Clinically patient is improved. Cultures are pending. We will continue current antibiotics pending culture results. Switch to oral prednisone [address] Dutta's recommendation. Encourage out of bed activity
--- NOTE | 2022-06-10 12:05 | PC.NURSE ---
telephone order for fluconazole 150mg po one time per alex.
--- NOTE | 2022-06-10 18:37 | PC.NURSE ---
PT ALERT X4, VSS. LUNGS BILAT WHEEZING T/O , KAMRAN NOTED BILAT UPPER LOBES. RA, TOLERATING WELL. PT HAS HAD NO COMPLAINTS OF SOA THIS SHIFT. ADEQUATE UOP. CB, PERSONAL ITEMS CONSUELO STEARNS. NO OTHER CONCERNS AT THIS TIME.
--- NOTE | 2022-06-10 21:06 | PC.NURSE ---
Two of pts medications not stocked in [facility]. Pt had some of her own, called [facility] pharmacist with description of medication and verified over phone that these are the same medications as ordered. Also verified with another RN.
[2022-06-11] VITALS (9 sets, daily range): BP systolic 126–157; BP diastolic 57–75; PULSE 60–90; RESP 14–16; TEMP 36.6–36.9; O2SAT 92–96; BMI 36.9
--- NOTE | 2022-06-11 03:44 | PC.NURSE ---
Pt is A&O x 4. Pt has rested well this shift. Pt remains on RA, NSR on telemetry. Lung sounds - expiratory wheezes & rhonchi. Pt is receiving scheduled neb treatments. IV infusing per order. Pt is independent in room. No needs or complaints voiced. Call light in reach.
--- NOTE | 2022-06-11 06:39 | PC.NURSE ---
Educated pt on need for sputum specimen. Pt states she is not coughing up anything at this time. Specimen cup at bedside.
[2022-06-11 08:27] LABS: Basophils % 0.1 % (0.1-2.0); Eosinophils # 0.2 K/mm3 (0.0-0.4); Eosinophils % 1.6 % (0.1-12.0); Hematocrit 34.4 % (37.0-47.0); Hemoglobin 10.9 g/dL (12.2-16.2); Lymphocytes # 0.9 K/mm3 (0.7-4.5); Lymphocytes % 8.2 % (10-50); Mean Corpuscular HGB Conc 31.7 g/dL (31.8-35.4); Mean Corpuscular Hemoglobin 28.6 pg (27.0-31.2); Mean Corpuscular Volume 90.4 fl (81-99); Mean Platelet Volume 8.7 fl (7.4-10.4); Monocytes # 0.2 K/mm3 (0.1-1.0); Monocytes % 1.8 % (1.7-9.3); Neutrophils % 88.3 % (37.0-80.0); Platelet Count 425 K/mm3 (142-424); Red Cell Distribution Width 13.3 % (11.5-17.5); White Blood Count 11.3 K/mm3 (4.8-10.8)
[2022-06-11 08:30] LABS: MANUAL DIFFERENTIAL MANUAL DIFFERENTIAL (MANUAL DIFF)
--- NOTE | 2022-06-11 08:49 | EXP.DC.SUM ---
General Admission date:: 06/09/22 HPI HPI HPI: Ms. 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 She states she was being treated with Augmentin for sinus infection for the previous 3 to 4 days. Shortness of breath had sudden onset and was severe. She tried her duo nebs at home with no improvement. She was able to drink fluids on Sunday but she was unable to eat. She denied having any fever, nausea, vomiting, or diarrhea. With evaluation in the emergency room she was found to have a temperature of 100.9 ABGs showed a pH of 7.41 PCO2 of 41.3, PO2 of 76.9 and a bicarb of 25.8. She did developed an atrial arrhythmia with a DuoNeb in the ER. Patient states she felt like she was going to with a slow heart rate and decrease in her O2 sats. Documentation from the ER indicates that she received metoprolol resulting in a sinus rhythm. EKG during episode showed SVT at 150 Chest x-ray revealed the following:IMPRESSION: 1. Hazy airspace disease in the central and lower right lung, correlate for pneumonia versus asymmetric edema. 2. Right pleural effusion. 3. Slight asymmetric right hilar fullness, which could be due to perihilar infiltrate or adenopathy. on admission white blood cell count was 13,500 and this a.m. is 14,400. This a.m. patient is still somewhat short of breath with any activity. She had to take a rest from eating her breakfast. She has some cough which is mostly nonproductive. She was able to sleep some during the night. She denies any chest pain. Exam Data for Last 24 hours Vital signs and Labs for Last 24 Hours: Temp Pulse Resp BP Pulse Ox 98.1 F 80 16 126/68 92 L 06/11/22 04:00 06/11/22 06:40 06/11/22 04:00 06/11/22 04:00 06/11/22 06:40 Laboratory Results - last 24 hr 06/11/22 07:33: WBC 11.3 H D, RBC 3.80 L, Hgb 10.9 L, Hct 34.4 L, MCV 90.4, MCH 28.6, MCHC 31.7 L, RDW 13.3, Plt Count 425 H, MPV 8.7, Neut % (Auto) 88.3 H, Lymph % (Auto) 8.2 L, [place] % (Auto) 1.8, Eos % (Auto) 1.6, Baso % (Auto) 0.1, Neut # (Auto) 10.0 H, Lymph # (Auto) 0.9, [place] # (Auto) 0.2, Eos # (Auto) 0.2, Baso # (Auto) 0.0 I & O for Last 24 hours: Intake & Output 06/08/22 06/09/22 06/10/22 06/11/22 11:59 11:59 11:59 11:59 Intake Total 855 / 855 3084 / 3084 2797 / 2797 Output Total 5902 / 5902 1400 / 1400 2300 / 2300 Balance -5047 / -5047 1684 / 1684 497 / 497 Weight 235 lb 3.732 oz 235 lb 3.732 oz 235 lb 3.732 oz Microbiology Reports for the Last 24 Hours: Microbiology 06/08/22 20:21 Blood Blood Culture - Preliminary NO GROWTH AFTER 48 HOURS 06/08/22 20:21 Blood Blood Culture - Preliminary NO GROWTH AFTER 48 HOURS 06/08/22 20:21 Urine,Clean Catch Urine Culture - Final NO GROWTH AFTER 48 HOURS Results Data Completed and Pending Labs on day of discharge: Labs from last 24 hours 06/11/22 07:33 WBC 11.3 H D RBC 3.80 L Hgb 10.9 L Hct 34.4 L MCV 90.4 MCH 28.6 MCHC 31.7 L RDW 13.3 Plt Count 425 H MPV 8.7 Neut % (Auto) 88.3 H Lymph % (Auto) 8.2 L [place] % (Auto) 1.8 Eos % (Auto) 1.6 Baso % (Auto) 0.1 Neut # (Auto) 10.0 H Lymph # (Auto) 0.9 [place] # (Auto) 0.2 Eos # (Auto) 0.2 Baso # (Auto) 0.0 Preliminary micro results at discharge 06/08/22 20:21 Blood Culture - Preliminary Blood NO GROWTH AFTER 48 HOURS 06/08/22 20:21 Blood Culture - Preliminary Blood NO GROWTH AFTER 48 HOURS DS: Diagnosis Discharge Diagnosis (1) CAP (community acquired pneumonia): Status: Acute (2) Atrial arrhythmia: Status: Acute (3) Panhypopituitarism: S
--- NOTE | 2022-06-11 09:41 | P.PN_ITS ---
Subjective *Date: 06/11/22 *Time: 09:41 Interval history: Rested well last night. She is breathing much better. Cough remains nonproductive. She is eager to go home. Exam Data for Last 24 hours Vital signs and Labs for Last 24 Hours: Temp Pulse Resp BP Pulse Ox 98.4 F 60 16 137/57 L 95 06/11/22 08:00 06/11/22 08:00 06/11/22 08:00 06/11/22 08:00 06/11/22 08:00 Laboratory Results - last 24 hr 06/11/22 07:33: WBC 11.3 H D, RBC 3.80 L, Hgb 10.9 L, Hct 34.4 L, MCV 90.4, MCH 28.6, MCHC 31.7 L, RDW 13.3, Plt Count 425 H, MPV 8.7, Neut % (Auto) 88.3 H, Lymph % (Auto) 8.2 L, [place] % (Auto) 1.8, Eos % (Auto) 1.6, Baso % (Auto) 0.1, Neut # (Auto) 10.0 H, Lymph # (Auto) 0.9, [place] # (Auto) 0.2, Eos # (Auto) 0.2, Baso # (Auto) 0.0 I & O for Last 24 hours: Intake & Output 06/08/22 06/09/22 06/10/22 06/11/22 11:59 11:59 11:59 11:59 Intake Total 855 / 855 3084 / 3084 3157 / 3157 Output Total 5902 / 5902 1400 / 1400 2300 / 2300 Balance -5047 / -5047 1684 / 1684 857 / 857 Weight 235 lb 3.732 oz 235 lb 3.732 oz 235 lb 3.732 oz Microbiology Reports for the Last 24 Hours: Microbiology 06/08/22 20:21 Blood Blood Culture - Preliminary NO GROWTH AFTER 48 HOURS 06/08/22 20:21 Blood Blood Culture - Preliminary NO GROWTH AFTER 48 HOURS 06/08/22 20:21 Urine,Clean Catch Urine Culture - Final NO GROWTH AFTER 48 HOURS Constitutional Comments: She is sitting up in the chair and appears in no distress. Chest reveals few scattered rhonchi and occasional wheeze. Heart is regular. Extremities no edema. Assessment and Plan *Assessment and plan (1) CAP (community acquired pneumonia): Status: Acute Category: Medical Code(s): J18.9 - Pneumonia, unspecified organism (2) Atrial arrhythmia: Status: Acute Category: Medical Code(s): I49.8 - Other specified cardiac arrhythmias (3) Panhypopituitarism: Status: Acute Category: Medical Code(s): E23.0 - Hypopituitarism (4) Asthma: Status: Acute Category: Medical Code(s): J45.909 - Unspecified asthma, uncomplicated (5) Obesity (BMI 30-39.9): Status: Acute Category: Medical Code(s): E66.9 - Obesity, unspecified Assessment and plan all Dx Assessment and Plan All Dx:: She is stable for discharge. She will continue on Levaquin for an additional [address] Dutta's recommendation. She will continue prednisone 40 mg daily for 3 more days and then resume her hydrocortisone maintenance dose. She should follow-up with her PCP, Dr. Erickson, in 3 to 5 days for recheck.
[2022-06-11 10:22] LABS: Lymphocytes % 11 % (10-50); Monocytes % 4 % (2-9); Neutrophils % 85 % (42-76); Total Cells Counted 100
[2022-06-11 10:23] LABS: Platelet Estimate Slight Increase; RBC Morphology Normal
--- NOTE | 2022-06-11 10:25 | PC.NURSE ---
dc instructions went over with ptHernando bergeron currently waiting on family to get out of [facility] for ride home.
--- NOTE | 2022-06-11 14:47 | EXP.DC.SUM ---
General Admission date:: 06/09/22 Discharge date: 06/11/22 HPI HPI HPI: Ms. 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 She stated she was being treated with Augmentin for sinus infection for the previous 3 to 4 days. Shortness of breath had sudden onset and was severe. She tried her duo nebs at home with no improvement. She was able to drink fluids on Sunday but she was unable to eat. She denied having any fever, nausea, vomiting, or diarrhea. With evaluation in the emergency room she was found to have a temperature of 100.9 ABGs showed a pH of 7.41 PCO2 of 41.3, PO2 of 76.9 and a bicarb of 25.8. She did developed an atrial arrhythmia with a DuoNeb in the ER. Patient states she felt like she was going to with a slow heart rate and decrease in her O2 sats. Documentation from the ER indicates that she received metoprolol resulting in a sinus rhythm. EKG during episode showed SVT at 150 Chest x-ray revealed the following: IMPRESSION: 1. Hazy airspace disease in the central and lower right lung, correlate forPlan #Acute pulmonary embolism: #Community-acquired pneumonia: #Left pleural effusion: Ms. Goldberg is a 25-year-old female presented to the hospital complaining worsening left-sided chest pain that worsens with breathing and coughing with minimal symptoms of respiratory status progressively getting worse since Sunday, was seen at [facility] on Sunday diagnosed with pulmonary embolism, initiated on apixaban 5 mg twice daily seen her PATIENT [employer]CIAL SERVICES SPECIALIST physician thought to be having respiratory distress and patient was sent to the ER for further evaluation. CTA performed months admission personally reviewed the patient along with left lower lobe pulmonary embolism also noted to have left lower lobe airspace disease and left-sided pleural effusion. It is less likely that the left lower lobe airspace disease is an infract and is likely from pneumonia.? No RV strain noted.? Troponins normal Afebrile.? Mild leukocytosis.? Saturating 90% and above on room air.? Respiratory distress.? Auscultation clear except for rhonchi in left lower lung lui. Patient is not planning for anytime soon and she is currently not breast-feeding. Plan: -Recommend to restart? Apixaban at 10 mg twice daily x 7 days? followed by 5 mg twice daily -Follow with D-dimer and lower extremity venous Doppler -Albuterol inhaler every 6 hours on as-needed basis -Continue cephalexin azithromycin, can be weaned to Augmentin 500 mg 3 times daily upon discharge for a total of 14 days.? We will follow the patient in pulmonary clinic in 7-10 days with repeat chest x-ray PA lateral. -Follow with sputum culture, CRP, urine strep and Legionella antigen pneumonia versus asymmetric edema. 2. Right pleural effusion. 3. Slight asymmetric right hilar fullness, which could be due to perihilar infiltrate or adenopathy. on admission white blood cell count was 13,500 and this a.m. is 14,400. The following AM with exam. patient was still somewhat short of breath with any activity. She had to take a rest from eating her breakfast. She had some cough which is mostly nonproductive. She was able to sleep some during the night. She denies any chest pain. Hospital Course Hospital Course Hospital Course: On admission patient was started on IV Zithromax and Rocephin. Due to the episode in the ER she was started on Xopenex and received IV fluids at 75. Maintenance medications from home were also continued. She was seen in consultation by photovoltaic installer Dr. Dutta who documented the following: X-rays revealed right middle lobe and lower lobe airspace disease and. We will plan conner
--- NOTE | 2022-06-13 14:00 | CARE MANAGER ---
Spoke with patient for post-discharge phone interview, patient got her medication and has a follow-up appointment in the am.
== END 2022-06-11 13:20 | disposition home or self-care (01) ==
LOC: UTC 18:39 → ER 19:46 → 2ND 23:55
PROVIDERS: Admitting Provider Family Medicine; Emergency Provider Emergency Medicine; PCP Internal Medicine; Visit Provider Family Medicine
DX: J18.9 Pneumonia, unspecified organism (principal); J45.901 Unspecified asthma with (acute) exacerbation; J96.01 Acute respiratory failure with hypoxia; I49.8 Other specified cardiac arrhythmias; E23.0 Hypopituitarism; E66.9 Obesity, unspecified; J90 Pleural effusion, not elsewhere classified; E23.2 Diabetes insipidus; Z68.35 Body mass index [BMI] 35.0-35.9, adult
CPT/HCPCS: 36415; 71046; 80048; 80053; 81001; 81025; 82803; 83605; 83735; 84145; 84436; 84443; 84484; 85007; 85025; 85651; 86140; 87040; 87086; 93005; 93041; 94640; 99285; C9803; G0378; J0456; J0696; J2405; U0003; U0005

== ENCOUNTER 2022-10-18 14:48 | Emergency (ER) | payer BC, SELFPAY ==
[2022-10-18 15:00] VITALS: BP 143/91; PULSE 85; RESP 20; TEMP 36.7; O2SAT 96; BMI 37.0
--- NOTE | 2022-10-18 15:08 | EXP.UTC ---
Discharge Plan Disposition Patient Disposition: Home, Self-Care Condition: Good Prescriptions Prescriptions: New cyclobenzaprine 10 mg tablet 10 mg PO TID PRN (Reason: muscle spasm) Qty: 15 0RF etodolac 200 mg capsule 200 mg PO Q8H PRN (Reason: pain) Qty: 12 0RF No Action desmopressin [DDAVP] 0.1 mg tablet 0.05 mg PO DAILY levothyroxine [Levoxyl] 175 mcg tablet 175 mcg PO DAILY hydrocortisone 10 mg tablet 10 mg PO BID Hold Instructions: Resume on 06/15/22. albuterol sulfate [ProAir HFA] 90 mcg/actuation HFA aerosol inhaler 1 puff INHALATION Q6H budesonide-formoterol [Symbicort] 160-4.5 mcg/actuation HFA aerosol inhaler 2 puff INHALATION BID albuterol sulfate 5 mg/mL solution for nebulization 2.5 mg INHALATION Q6H somatropin 8 mg Recon Soln 0.8 mg SQ DAILY nebivolol [Bystolic] 5 mg Tablet 5 mg PO DAILY Zyrtec 10 mg Capsule 10 mg PO DAILY desmopressin 0.1 mg Tablet 0.1 mg PO HS montelukast 10 mg Tablet 10 mg PO HS Referrals Follow up/Referrals: Gerardo Erickson MD [Primary Care Provider] - See instructions Activity Restrictions/Add. Instructions Additional Instructions/Restrictions: *Etodolac every 8 hours with meal as needed for pain/inflammation *Remember you had a Toradol shot in the clinic today, which is similar to Motrin and Etodolac *Not additional anti-inflammatory like Ibuprofen, motrin, aleve, advil with the above amount of Etodolac. You can still take Tylenol every 4 hours as needed if you need something else for pain *Ice 20 minutes every 2 hours for the first 48 hours after the initial injury followed by moist heat every 20 minutes 3-4 times a day to affected area *Muscle relaxer every 8 hours as needed for muscle spasms but remember, it WILL cause drowsiness You cannot take it and drive, operate machinery or care for small children. *Keep this area active, no movement leads to more stiffness, However take it easy and avoid heavy lifting pushing or pulling *Follow up with you family doctor if no improvement for further treatment Clinical Impressions Clinical Impression: Low back pain Qualifiers: Chronicity: unspecified Back pain laterality: bilateral Sciatica presence: without sciatica Qualified Code(s): M54.50 - Low back pain, unspecified Instructions Patient Instructions: Low Back Pain, DI for Low Back Pain, DI for Muscle Spasm Discharge ED Provider: Echo Acosta [facility] General Stated complaint: Lower back pain Mode of Arrival: Ambulatory Source of Information: Patient Limitations: No Limitations Time Seen by Provider: 10/18/22 15:08 Description of Symptoms (Recalled from Triage Doc. by RN): bend down to get a piece of laundry and came back up and feels like she pulled a muscle HEENT Symptoms (Recalled from RN notes): No Resp Symptoms (Recalled from RN notes): No Skin Symptoms (Recalled from RN notes): No MS Symptoms (Recalled from RN notes): Yes Functional Status (Recalled from RN notes): n/a History of Present Illness Provider Complaint: Patient states that she was packing laundry basket this morning when she dropped a piece of laundry and she bent over to pick it up and felt something pull in her lower back States that since then she has been having spasms in her lower back that is worse with movement Denies loss of control of bowel or bladder denies radiation of pain Related Data Home Medications Medication Instructions Recorded Confirmed albuterol sulfate 90 mcg/actuation 1 puff inhalation Q6H Asthma 10/21/17 10/18/22 aerosol inhaler (ProAir HFA) desmopressin 0.1 mg tablet (DDAVP) 0.05 mg PO DAILY diabetes insipidus 10/21/17 10/18/22 hydrocortisone 10 mg tablet 10 mg PO BID adrenal insufficiency 10/21/17 10/18/22 levothyroxine 175 mcg tablet 175 mcg PO DAILY hypothyroidism 10/21/17 10/18/22 (Levoxyl) albuterol sulfate 5 mg/mL(0.5 %) 2.5 mg inhalation Q6H Asthma 11/25/19 10/18/22 solution for nebul
[2022-10-18 16:03] VITALS: BP 143/91; PULSE 85; RESP 20; TEMP 36.7; O2SAT 96
== END 2022-10-18 16:02 | disposition home or self-care (01) ==
PROVIDERS: Emergency Provider Nurse Practitioner; PCP Internal Medicine
DX: M54.50 Low back pain, unspecified (principal)
CPT/HCPCS: 99212; 99213; G0463

== ENCOUNTER 2022-12-06 08:00 | Emergency (ER) | payer BC, SELFPAY ==
[2022-12-06 08:05] VITALS: BP 137/83; PULSE 113; RESP 20; TEMP 38.6; O2SAT 96; BMI 37.5
--- NOTE | 2022-12-06 08:17 | EXP.UTC ---
Discharge Plan Disposition Patient Disposition: Home, Self-Care Condition: Good Prescriptions Prescriptions: New promethazine 25 mg Tablet 25 mg PO Q6H PRN (Reason: Nausea And Vomiting) Qty: 20 0RF No Action desmopressin [DDAVP] 0.1 mg tablet 0.05 mg PO DAILY levothyroxine [Levoxyl] 175 mcg tablet 175 mcg PO DAILY hydrocortisone 10 mg tablet 10 mg PO BID Hold Instructions: Resume on 06/15/22. albuterol sulfate [ProAir HFA] 90 mcg/actuation HFA aerosol inhaler 1 puff INHALATION Q6H budesonide-formoterol [Symbicort] 160-4.5 mcg/actuation HFA aerosol inhaler 2 puff INHALATION BID albuterol sulfate 5 mg/mL solution for nebulization 2.5 mg INHALATION Q6H phentermine 37.5 mg tablet 37.5 mg PO DAILY Label Comments: TAKE 1 TABLET BY MOUTH ONCE DAILY IN THE MORNING nebivolol [Bystolic] 5 mg Tablet 5 mg PO DAILY Zyrtec 10 mg Capsule 10 mg PO DAILY desmopressin 0.1 mg Tablet 0.1 mg PO HS montelukast 10 mg Tablet 10 mg PO HS Referrals Follow up/Referrals: Gerardo Erickson MD [Primary Care Provider] - See instructions Activity Restrictions/Add. Instructions Additional Instructions/Restrictions: Drink plenty of fluids. Take tylenol or ibuprofen for pain or fever. Take the medications as directed. Follow up with your regular doctor. GO TO THE ER FOR ANY WORSENING SYMPTOMS The promethazine (phenergran) will make you drowsy, so don't drive or operate heavy machinery after taking it. Clinical Impressions Clinical Impression: Gastroenteritis Instructions Patient Instructions: DI for Viral Gastroenteritis -- Adult, Promethazine Discharge ED Provider[place] Dior [facility] [place] General Stated complaint: vomiting, diarrhea, body aches, ZACARIAS Time Seen by Provider: 12/06/22 08:17 History of Present Illness Provider Complaint: She states that she has had n/v/d for the past 2 days. She has a history of diabetes insipidus. She is afraid she is getting dehydrated. She denies abdominal pain. Related Data Home Medications Medication Instructions Recorded Confirmed albuterol sulfate 90 mcg/actuation 1 puff inhalation Q6H Asthma 10/21/17 12/06/22 aerosol inhaler (ProAir HFA) desmopressin 0.1 mg tablet (DDAVP) 0.05 mg PO DAILY diabetes insipidus 10/21/17 12/06/22 hydrocortisone 10 mg tablet 10 mg PO BID adrenal insufficiency 10/21/17 12/06/22 levothyroxine 175 mcg tablet 175 mcg PO DAILY hypothyroidism 10/21/17 12/06/22 (Levoxyl) albuterol sulfate 5 mg/mL(0.5 %) 2.5 mg inhalation Q6H Asthma 11/25/19 12/06/22 solution for nebulization budesonide-formoterol HFA 160 2 puff inhalation BID Asthma 11/25/19 12/06/22 mcg-4.5 mcg/actuation aerosol inhaler (Symbicort) cetirizine 10 mg capsule (Zyrtec) 10 mg PO DAILY allergies 06/08/22 06/08/22 nebivolol 5 mg tablet (Bystolic) 5 mg PO DAILY blood pressure 06/08/22 12/06/22 desmopressin 0.1 mg tablet 0.1 mg PO HS diabetes insipidus 06/09/22 12/06/22 montelukast 10 mg tablet 10 mg PO HS Asthma 06/09/22 12/06/22 phentermine 37.5 mg tablet 37.5 mg PO DAILY . 12/06/22 12/06/22 Previous Rx's Medication Instructions Recorded promethazine 25 mg tablet 25 mg PO Q6H PRN Nausea And 12/06/22 Vomiting #20 tabs Allergies Allergy/AdvReac Type Severity Reaction Status Date / Time codeine Allergy Verified 12/06/22 08:21 levofloxacin [From Levaquin] Allergy Verified 12/06/22 08:21 [facility] Disclaimer: The information contained in this section may have been updated after the patient was seen, as this information can be updated by other users. Medical History Acute asthma exacerbation Acute respiratory failure with hypoxia Adrenal insufficiency Asthma COPD (chronic obstructive pulmonary disease) Diabetes insipidus History of pneumonia Hypertension Panhypopituitarism Thyroid disease Surgical History (Reviewed 0
[2022-12-06 08:29] LABS: UTC Influenza A Antigen Negative (Negative); UTC Strep Screen (Rapid) Negative (Negative)
[2022-12-06 08:30] LABS: UTC Influenza B Antigen Negative (Negative)
[2022-12-06 08:32] VITALS: BP 118/76; BP 121/61; BP 137/79; PULSE 102; PULSE 110; PULSE 113
--- NOTE | 2022-12-06 09:36 | PC.NURSE ---
Checked on pt no needs at this time.
[2022-12-06 11:26] VITALS: BP 137/83; PULSE 113; RESP 20; TEMP 37.9; O2SAT 96
== END 2022-12-06 11:24 | disposition home or self-care (01) ==
PROVIDERS: Emergency Provider Nurse Practitioner Family; PCP Internal Medicine
DX: K52.9 Noninfective gastroenteritis and colitis, unspecified (principal)
CPT/HCPCS: 87804; 87880; 96360; 96361; 99213; G0463

== ENCOUNTER → 2023-01-16 11:47 | Outpatient (CLI) | payer BC, SELFPAY ==
[2023-01-16 12:44] LABS: Basophils # 0.1 K/mm3 (0-0.2); Eosinophils # 0.4 K/mm3 (0.0-0.4); Eosinophils % 7.4 % (0.1-12.0); Hematocrit 42.6 % (37.0-47.0); Hemoglobin 13.7 g/dL (12.2-16.2); Lymphocytes # 2.3 K/mm3 (0.7-4.5); Lymphocytes % 41.4 % (10-50); Mean Corpuscular HGB Conc 32.1 g/dL (31.8-35.4); Mean Corpuscular Hemoglobin 28.4 pg (27.0-31.2); Mean Corpuscular Volume 88.3 fl (81-99); Mean Platelet Volume 8.8 fl (7.4-10.4); Monocytes # 0.3 K/mm3 (0.1-1.0); Monocytes % 4.8 % (1.7-9.3); Neutrophils # 2.5 K/mm3 (1.8-7.8); Neutrophils % 45.4 % (37.0-80.0); Platelet Count 473 K/mm3 (142-424); Red Blood Count 4.83 M/mm3 (4.20-5.40); Red Cell Distribution Width 14.1 % (11.5-17.5); White Blood Count 5.5 K/mm3 (4.8-10.8)
[2023-01-16 14:02] LABS: Chloride 104 mmol/L (98-107); Sodium 143 mmol/L (136-145)
[2023-01-16 14:03] LABS: Potassium 4.5 mmoL/L (3.5-5.1)
[2023-01-16 14:05] LABS: Alanine Aminotransferase 13 U/L (12-78); Albumin Level 4.3 g/dl (3.5-5.0); Albumin/Globulin Ratio 1.4 (1.1-1.8); Alkaline Phosphatase 107 U/L (38-126); Amylase 45 U/L (30-110); Anion Gap 13.5 mEq/L (5-15); Aspartate Amino Transferase 27 U/L (14-36); Bilirubin,Total 0.4 mg/dl (0.2-1.3); Blood Urea Nitrogen 9 mg/dl (7-17); Calcium 9.1 mg/dl (8.4-10.2); Carbon Dioxide 30 mmol/L (22.0-30.0); Estimated Glomerular Filt Rate 89 ml/min (>60); GFR (African American) 107 ML/MIN (>60); Globulin 3.1 g/dL (1.3-3.2); Glucose 89 mg/dl (74-100); Total Protein,Serum 7.4 g/dl (6.3-8.2)
== END ==
LOC: LAB.DROPOF 11:48
PROVIDERS: PCP Internal Medicine; Visit Provider Internal Medicine
DX: R10.9 Unspecified abdominal pain (principal); K52.9 Noninfective gastroenteritis and colitis, unspecified; E23.0 Hypopituitarism; G43.109 Migraine with aura, not intractable, without status migrainosus
CPT/HCPCS: 80053; 82150; 85025

== ENCOUNTER 2023-01-22 09:06 | Emergency (ER) | payer BC, SELFPAY ==
[2023-01-22 09:15] VITALS: BP 159/65; PULSE 68; RESP 20; TEMP 36.8; O2SAT 97; BMI 35.2
--- NOTE | 2023-01-22 09:31 | EXP.UTC ---
Discharge Plan Disposition Patient Disposition: Home, Self-Care Condition: Good Prescriptions Prescriptions: New acyclovir 800 mg tablet 800 mg PO 5XDAY 7 Days Qty: 35 0RF prednisone 10 mg tablet 10 mg PO DIRECTED 9 Days Qty: 21 0RF Rx Instructions: Take 4 tablets daily for 3 days, then take 2 tablets daily for 3 days, then take 1 tablet daily for 3 days, then stop. ibuprofen [IBU] 800 mg tablet 800 mg PO Q8HP PRN (Reason: Moderate Pain) Qty: 30 0RF triamcinolone acetonide 0.1 % cream 1 applic topical BID PRN (Reason: itching) Qty: 30 0RF No Action desmopressin [DDAVP] 0.1 mg tablet 0.05 mg PO DAILY levothyroxine [Levoxyl] 175 mcg tablet 175 mcg PO DAILY hydrocortisone 10 mg tablet 10 mg PO BID Hold Instructions: Resume on 06/15/22. albuterol sulfate [ProAir HFA] 90 mcg/actuation HFA aerosol inhaler 1 puff INHALATION Q6H budesonide-formoterol [Symbicort] 160-4.5 mcg/actuation HFA aerosol inhaler 2 puff INHALATION BID albuterol sulfate 5 mg/mL solution for nebulization 2.5 mg INHALATION Q6H nebivolol [Bystolic] 5 mg Tablet 10 mg PO DAILY Zyrtec 10 mg Capsule 10 mg PO DAILY desmopressin 0.1 mg Tablet 0.1 mg PO HS montelukast 10 mg Tablet 10 mg PO HS Referrals Follow up/Referrals: Gerardo Erickson MD [Primary Care Provider] - See instructions Activity Restrictions/Add. Instructions Additional Instructions/Restrictions: Drink plenty of fluids. Take the ibuprofen for pain.. Take the medications as directed. Follow up with your regular doctor. GO TO THE ER FOR ANY WORSENING SYMPTOMS Clinical Impressions Clinical Impression: Herpes zoster Stand Alone Forms Stand Alone Forms: Work/School Release Instructions Patient Instructions: Shingles, DI for Shingles, Triamcinolone Topical, Acyclovir Discharge ED Provider: Elroy Dior [facility] General Stated complaint: rash on right side,pain Time Seen by Provider: 01/22/23 09:31 History of Present Illness Provider Complaint: She states that for the past 2 days she has had a painful rash on her right back and right abdomen. Related Data Home Medications Medication Instructions Recorded Confirmed albuterol sulfate 90 mcg/actuation 1 puff inhalation Q6H Asthma 10/21/17 12/06/22 aerosol inhaler (ProAir HFA) desmopressin 0.1 mg tablet (DDAVP) 0.05 mg PO DAILY diabetes insipidus 10/21/17 12/06/22 hydrocortisone 10 mg tablet 10 mg PO BID adrenal insufficiency 10/21/17 12/06/22 levothyroxine 175 mcg tablet 175 mcg PO DAILY hypothyroidism 10/21/17 01/22/23 (Levoxyl) albuterol sulfate 5 mg/mL(0.5 %) 2.5 mg inhalation Q6H Asthma 11/25/19 12/06/22 solution for nebulization budesonide-formoterol HFA 160 2 puff inhalation BID Asthma 11/25/19 12/06/22 mcg-4.5 mcg/actuation aerosol inhaler (Symbicort) cetirizine 10 mg capsule (Zyrtec) 10 mg PO DAILY allergies 06/08/22 06/08/22 nebivolol 5 mg tablet (Bystolic) 10 mg PO DAILY blood pressure 06/08/22 01/22/23 desmopressin 0.1 mg tablet 0.1 mg PO HS diabetes insipidus 06/09/22 12/06/22 montelukast 10 mg tablet 10 mg PO HS Asthma 06/09/22 01/22/23 Previous Rx's Medication Instructions Recorded acyclovir 800 mg tablet 800 mg PO 5XDAY 7 days #35 tabs 01/22/23 ibuprofen 800 mg tablet (IBU) 800 mg PO Q8HP PRN Moderate Pain 01/22/23 #30 tabs prednisone 10 mg tablet 10 mg PO DIRECTED 9 days #21 01/22/23 tabs triamcinolone acetonide 0.1 % 1 applic topical BID PRN itching 01/22/23 topical cream #30 grams Allergies Allergy/AdvReac Type Severity Reaction Status Date / Time codeine Allergy Verified 01/22/23 09:42 levofloxacin [From Levaquin] Allergy Verified 01/22/23 09:42 [facility] Disclaimer: The information contained in this section may have been updated after the patient was seen, as this information can be updated by other users. Medical History (Reviewed 01/23/23 @ 15:45 b
[2023-01-22 10:44] VITALS: BP 159/65; PULSE 68; RESP 20; TEMP 36.8; O2SAT 97
== END 2023-01-22 10:44 | disposition home or self-care (01) ==
PROVIDERS: Emergency Provider Nurse Practitioner Family; PCP Internal Medicine
DX: B02.9 Zoster without complications (principal); J44.9 Chronic obstructive pulmonary disease, unspecified; I10 Essential (primary) hypertension; E03.9 Hypothyroidism, unspecified; E23.2 Diabetes insipidus
CPT/HCPCS: 99212; 99214; G0463

== ENCOUNTER 2023-11-06 21:29 | Observation (INO) | payer BC, SELFPAY ==
[2023-11-06 21:31] VITALS: BP 101/55; PULSE 95; RESP 20; TEMP 36.9; O2SAT 96; BMI 33.6
[2023-11-06 21:54] LABS: Basophils # 0.1 K/mm3 (0-0.2); Basophils % 1.2 % (0.1-2.0); Eosinophils # 0.1 K/mm3 (0.0-0.4); Eosinophils % 0.9 % (0.1-12.0); Hematocrit 47.2 % (37.0-47.0); Hemoglobin 15.3 g/dL (12.2-16.2); Lymphocytes # 2.2 K/mm3 (0.7-4.5); Mean Corpuscular HGB Conc 32.4 g/dL (31.8-35.4); Mean Corpuscular Hemoglobin 28.1 pg (27.0-31.2); Mean Corpuscular Volume 86.5 fl (81-99); Monocytes # 0.3 K/mm3 (0.1-1.0); Monocytes % 4.8 % (1.7-9.3); Neutrophils # 3.3 K/mm3 (1.8-7.8); Neutrophils % 56.1 % (37.0-80.0); Platelet Count 348 K/mm3 (142-424); Red Blood Count 5.46 M/mm3 (4.20-5.40); Red Cell Distribution Width 13.5 % (11.5-17.5); White Blood Count 5.8 K/mm3 (4.8-10.8)
[2023-11-06] MEDS: HYDROCORTISONE SOD SUCCINATE 100MG VIAL 100 MG IV (21:54)
[2023-11-06] MEDS: KETOROLAC 30MG/ML VIAL 15 MG IV (21:54)
[2023-11-06] MEDS: ONDANSETRON 4MG/2ML VIAL 4 MG IV (21:54)
[2023-11-06] MEDS: LACTATED RINGERS 1000ML 1,000 ML 999 ML IV (21:55)
--- NOTE | 2023-11-06 21:56 | HMH.EDGENADL ---
Discharge Plan Disposition Patient Disposition: Admitted Prescriptions Prescriptions: No Action desmopressin [DDAVP] 0.1 mg tablet 0.05 mg PO DAILY levothyroxine [Levoxyl] 175 mcg tablet 175 mcg PO DAILY hydrocortisone 10 mg tablet 10 mg PO BID Hold Instructions: Resume on 06/15/22. albuterol sulfate [ProAir HFA] 90 mcg/actuation HFA aerosol inhaler 1 puff INHALATION Q6H budesonide-formoterol [Symbicort] 160-4.5 mcg/actuation HFA aerosol inhaler 2 puff INHALATION BID albuterol sulfate 5 mg/mL solution for nebulization 2.5 mg INHALATION Q6H nebivolol [Bystolic] 5 mg Tablet 10 mg PO DAILY Zyrtec 10 mg Capsule 10 mg PO DAILY desmopressin 0.1 mg Tablet 0.1 mg PO HS montelukast 10 mg Tablet 10 mg PO HS acyclovir 800 mg tablet 800 mg PO 5XDAY 7 Days Qty: 35 0RF prednisone 10 mg tablet 10 mg PO DIRECTED 9 Days Qty: 21 0RF Rx Instructions: Take 4 tablets daily for 3 days, then take 2 tablets daily for 3 days, then take 1 tablet daily for 3 days, then stop. ibuprofen [IBU] 800 mg tablet 800 mg PO Q8HP PRN (Reason: Moderate Pain) Qty: 30 0RF triamcinolone acetonide 0.1 % cream 1 applic topical BID PRN (Reason: itching) Qty: 30 0RF Referrals Follow up/Referrals: Gerardo Erickson MD [Primary Care Provider] - See instructions Clinical Impressions Clinical Impression: CLIFFORD (acute kidney injury), Nausea vomiting and diarrhea, Panhypopituitarism, Dehydration, Acute adrenal crisis Instructions Patient Instructions: DI for Acute Abdominal Pain Discharge ED Provider: Mauri Mederos General Adult HPI General Chief complaint: Abdominal Pain Stated complaint: vomiting,diarrhea Time Seen by Provider: 11/06/23 21:35 Mode of Arrival: Wheelchair Source of Information: Patient Limitations: No Limitations Description of Symptoms (Recalled from ER Triage Doc. by RN): Pt presents with complaints of abdominal pain associated with N/V/D since yesterday. Took phenergan and immodium at home with little improvement History of Present Illness HPI narrative: Patient is a 53-year-old female with a history of panhypopituitary is him presents today with nausea vomiting diarrhea for 1 day. States that when she is like that she typically is dehydrated she typically requires a stress dose of steroids. She denies any significant abdominal pain. Denies any positive sick contacts denies any other significant past medical problems. Related Data Home Medications Medication Instructions Recorded Confirmed albuterol sulfate 90 mcg/actuation 1 puff inhalation Q6H Asthma 10/21/17 12/06/22 aerosol inhaler (ProAir HFA) desmopressin 0.1 mg tablet (DDAVP) 0.05 mg PO DAILY diabetes insipidus 10/21/17 12/06/22 hydrocortisone 10 mg tablet 10 mg PO BID adrenal insufficiency 10/21/17 12/06/22 levothyroxine 175 mcg tablet 175 mcg PO DAILY hypothyroidism 10/21/17 01/22/23 (Levoxyl) albuterol sulfate 5 mg/mL(0.5 %) 2.5 mg inhalation Q6H Asthma 11/25/19 12/06/22 solution for nebulization budesonide-formoterol HFA 160 2 puff inhalation BID Asthma 11/25/19 12/06/22 mcg-4.5 mcg/actuation aerosol inhaler (Symbicort) cetirizine 10 mg capsule (Zyrtec) 10 mg PO DAILY allergies 06/08/22 06/08/22 nebivolol 5 mg tablet (Bystolic) 10 mg PO DAILY blood pressure 06/08/22 01/22/23 desmopressin 0.1 mg tablet 0.1 mg PO HS diabetes insipidus 06/09/22 12/06/22 montelukast 10 mg tablet 10 mg PO HS Asthma 06/09/22 01/22/23 Previous Rx's Medication Instructions Recorded acyclovir 800 mg tablet 800 mg PO 5XDAY 7 days #35 tabs 01/22/23 ibuprofen 800 mg tablet (IBU) 800 mg PO Q8HP PRN Moderate Pain 01/22/23 #30 tabs prednisone 10 mg tablet 10 mg PO DIRECTED 9 days #21 01/22/23 tabs triamcinolone acetonide 0.1 % 1 applic topical BID PRN itching 01/22/23 topical cream #30 grams Allergies Allergy/AdvReac Type Severity Reaction Status Date / Time codeine Allergy Verified 01/22/23 09:42 levofloxacin [From Levaquin] Allergy Verified 01/22/23 09:42 [facility] Disclaimer: The information contained in this section may have been updated after the patient was seen, as this information can be updated by other users. Medical History Acute asthma exacerbation Acute respiratory failure with hypoxia Adrenal insufficiency Asthma COPD (chronic obstructive pulmonary disease) Diabetes insipidus History of pneumonia Hypertension Panhypopituitarism Thyroid disease Surgical History History of cholecystectomy History of surgical removal of pituitary gland History of tonsillectomy S/P tympanic tube insertion Family History Other Coronary artery disease Social History Smoking Status: Never smoker alcohol intake: never substance use type: denies use current occupational status: employed Travel in the last 8 weeks: None household members: family housing: house ROS Obtained: Yes All systems reviewed & no additional complaints except as documented Physical Exam General General appearance: alert Respiratory Respiratory exam: Present normal lung sounds bilaterally Cardiovascular Cardiovascular exam: Present regular rate and normal rhythm Abdominal Exam Abdominal exam: Present soft; Absent distention or tenderness Neurological Exam Neurological exam: Present alert Medical Decision Making Dank Inquiry Pt receiving controlled substance: No Dank was queried for this patient: No Vital Signs: 11/06/23 21:31 Temperature 98.5 F Temperature Source Oral Pulse Rate [Left] 95 H Respiratory Rate 20 Blood Pressure [Right Arm] 101/55 L Blood Pressure Mean [Right Arm] 70 Blood Pressure Source [Right Arm] Automatic Cuff Blood Pressure Position [Right Arm] Sitting 02 Sat by Pulse Oximetry 96 Oxygen Delivery Method Room Air Lab Data Lab results reviewed: Yes I reviewed the patient's lab results. Lab Results 11/06/23 21:45: WBC 5.8, RBC 5.46 H, Hgb 15.3, Hct 47.2 H, MCV 86.5, MCH 28.1, MCHC 32.4, RDW 13.5, Plt Count 348, MPV 8.0, Neut % (Auto) 56.1, Lymph % (Auto) 37.0, [place] % (Auto) 4.8, Eos % (Auto) 0.9, Baso % (Auto) 1.2, Neut # (Auto) 3.3, Lymph # (Auto) 2.2, [place] # (Auto) 0.3, Eos # (Auto) 0.1, Baso # (Auto) 0.1, Sodium 133 L, Potassium 3.9, Chloride 105, Carbon Dioxide 15 L, Anion Gap 16.9 H, BUN 19 H, Creatinine 1.80 H, Estimated Creat Clear 57, Estimated GFR 30 L, Est GFR ( Amer) 36 L, Glucose 89, Calcium 8.4, Total Bilirubin 0.7, AST 50 H, ALT 22, Alkaline Phosphatase 124, Total Protein 7.3, Albumin 3.9, Globulin 3.4 H, Albumin/Globulin Ratio 1.1, Lipase 56 11/06/23 21:45 11/06/23 21:45 Orders (Tests/Meds): ED MEDICATIONS Generic Name Dose Route Start Last Admin Trade Name Freq PRN Reason Stop Dose Admin Lactated Ringer's 1,000 mls @ 999 mls/hr 11/06/23 21:45 11/06/23 21:55 Lactated Ringer's 1000 Ml Bag IV 11/06/23 22:45 999 mls/hr .Q1H1M ELSA Administration Discontinued Medications Generic Name Dose Route Start Last Admin Trade Name Freq PRN Reason Stop Dose Admin Hydrocortisone Sodium Succinate 100 mg 11/06/23 21:43 11/06/23 21:54 Hydrocortisone Sod Succinate 100mg Vial IV 11/06/23 21:44 100 mg ONCE ONE Administration Ketorolac Tromethamine 15 mg 11/06/23 21:43 11/06/23 21:54 Ketorolac 30mg/Ml Vial IV 11/06/23 21:44 15 mg ONCE ONE Administration Ondansetron HCl 4 mg 11/06/23 21:43 11/06/23 21:54 Ondansetron 4mg/2ml Vial IV 11/06/23 21:44 4 mg ONCE ONE Administration ORDERS Category Date Time Status CBC w/Auto Diff [Complete Blood Count Auto Diff] Stat Lab 11/06/23 21:45 Completed CMP [Comprehensive Metabolic Panel] Stat Lab 11/06/23 21:45 Completed Lipase Stat Lab 11/06/23 21:45 Completed Medical Decision Narrative: Well-appearing 53-year-old female with a history of panhypopituitarism presenting today with nausea vomiting diarrhea consistent most likely with a viral syndrome. Will check electrolytes to make sure she is not having a significant or severe adrenal crisis. Given the fact that she has not been able to tolerate her steroids at home we will give her stress dose of hydrocortisone in addition to IV fluids Zofran and Toradol and will reassess her. Assessment patient remained stable still has a benign abdominal exam she is mildly hypotensive 90s over 60s on my assessment also has acute kidney injury with a creatinine of 1.8 with a baseline creatinine 0.7. She will need to be admitted for continuous IV fluids as well as continued steroids in the setting of adrenal crisis. I spoke with Filiberto with hospital medicine who agreed to admit the patient for further evaluation and treatment. Critical Care Critical Care Time Critical Care Time: Yes Attestation: On 11/06/23, the high probability of a clinically significant, sudden or life threatening deterioration of the following system(s) required my full and direct attention, intervention and personal management. The time I documented below is in addition to time spent performing reported procedures but includes the following listed in this critical care notation. Total Time Total Critical Care Time: 35
[2023-11-06 21:57] LABS: Chloride 105 mmol/L (98-107); Sodium 133 mmol/L (136-145)
[2023-11-06 21:58] LABS: Potassium 3.9 mmoL/L (3.5-5.1)
[2023-11-06 22:00] LABS: Alanine Aminotransferase 22 U/L (12-78); Alkaline Phosphatase 124 U/L (38-126); Anion Gap 16.9 mEq/L (5-15); Aspartate Amino Transferase 50 U/L (14-36); Bilirubin,Total 0.7 mg/dl (0.2-1.3); Blood Urea Nitrogen 19 mg/dl (7-17); Carbon Dioxide 15 mmol/L (22.0-30.0); Creatinine Clearance Estimated 57 mL/min (50-200); Estimated Glomerular Filt Rate 30 ml/min (>60); GFR (African American) 36 ML/MIN (>60); Lipase 56 U/L (23-300)
[2023-11-06 22:01] LABS: Albumin Level 3.9 g/dl (3.5-5.0); Albumin/Globulin Ratio 1.1 (1.1-1.8); Calcium 8.4 mg/dl (8.4-10.2); Globulin 3.4 g/dL (1.3-3.2); Glucose 89 mg/dl (74-100); Total Protein,Serum 7.3 g/dl (6.3-8.2)
--- NOTE | 2023-11-06 22:11 | EXP.HP ---
History of Present Illness *Admission Date: 11/06/23 *Reason for visit:: Adrenal Crisis/ CLIFFORD *History of present illness: This is a 53-year-old female with a history of panhypopituitarism, Diabetes insipidus, Asthma, presented today with nausea vomiting diarrhea for 1 day. Patient has not been able to tolerate her hydrocortisone oral, patient states that when she is like that, she is dehydrated typically requires a stress dose of steroids. Present with nonspecific signs and symptoms including nausea, vomiting, anorexia. ?She denies any significant abdominal pain, fever. Denies any positive sick contacts denies any other significant past medical problems. Admitted for further treatment and management. [facility] Disclaimer: The information contained in this section may have been updated after the patient was seen, as this information can be updated by other users. Medical History (Updated 11/07/23 @ 02:01 by Neel Brink APRN) Acute asthma exacerbation Acute respiratory failure with hypoxia Adrenal insufficiency Asthma COPD (chronic obstructive pulmonary disease) Diabetes insipidus History of pneumonia Hypertension Hyponatremia Panhypopituitarism Thyroid disease Surgical History History of cholecystectomy History of surgical removal of pituitary gland History of tonsillectomy S/P tympanic tube insertion Family History Other Coronary artery disease Social History (Updated 11/06/23 @ 22:55 by Bethany Ingram RN) Smoking Status: Never smoker alcohol intake: never substance use type: denies use current occupational status: employed Travel in the last 8 weeks: None household members: family and none housing: house lives independently: Yes marital status: single Review of Systems Review of Systems Review of systems:: pertinent systems reviewed and negative unless documented below Meds Home Medications and Allergies Home Medications Medication Instructions Recorded Confirmed Type albuterol sulfate 90 mcg/actuation 1 puff inhalation Q6HP PRN 10/21/17 11/07/23 History aerosol inhaler (ProAir HFA) Shortness Of Breath levothyroxine 175 mcg tablet 175 mcg PO DAILY hypothyroidism 10/21/17 11/06/23 History (Levoxyl) albuterol sulfate 5 mg/mL(0.5 %) 2.5 mg inhalation Q6HP PRN 11/25/19 11/07/23 History solution for nebulization Shortness Of Breath budesonide-formoterol HFA 160 2 puff inhalation BID Breathing 11/25/19 11/06/23 History mcg-4.5 mcg/actuation aerosol Problems inhaler (Symbicort) cetirizine 10 mg capsule (Zyrtec) 10 mg PO DAILY Allergy Symptoms 06/08/22 11/06/23 History montelukast 10 mg tablet 10 mg PO PM Asthma 06/09/22 11/07/23 History desmopressin 0.2 mg tablet 0.2 mg PO DIRECTED 11/07/23 11/07/23 History escitalopram oxalate 20 mg tablet 20 mg PO DAILY Mood 11/07/23 11/07/23 History fluticasone propionate 50 1 spray intranasal DAILY Allergy 11/07/23 11/07/23 History mcg/actuation nasal Symptoms spray,suspension hydrocortisone 10 mg tablet 10 mg PO BID Adrenal Insufficiency 11/07/23 11/07/23 History nebivolol 5 mg tablet 5 mg PO DAILY High Blood Pressure 11/07/23 11/07/23 History somatropin 12 mg (36 unit) 0 mg SQ DIRECTED 11/07/23 11/07/23 History injection cartridge (Humatrope) tiotropium bromide 1.25 2 puff inhalation DAILY Breathing 11/07/23 11/07/23 History mcg/actuation mist for inhalation Problems (Spiriva Respimat) topiramate 50 mg tablet 50 mg PO DAILY Migraine 11/07/23 11/07/23 History trazodone 50 mg tablet 100 mg PO HS Sleep 11/07/23 11/07/23 History New Prescriptions to Start Prescriptions: Allergies Allergy/AdvReac Type Severity Reaction Status Date / Time codeine Allergy Verified 01/22/23 09:42 levofloxacin [From Levaquin] Allergy Verified 01/22/23 09:42 Exam Data for Last 24 hours Vital signs and Labs for Last 24 Hours: Temp Pulse Resp BP Pulse Ox O2 Del Method 98.5 F 95 H 20 101/55 L 96 Room Air 11/06/23 21:31 11/06/23 21:31 11/06/23 21:31 11/06/23 21:31 11/06/23 21:31 11/06/23 21:31 Laboratory Results - last 24 hr 11/06/23 21:45: WBC 5.8, RBC 5.46 H, Hgb 15.3, Hct 47.2 H, MCV 86.5, MCH 28.1, MCHC 32.4, RDW 13.5, Plt Count 348, MPV 8.0, Neut % (Auto) 56.1, Lymph % (Auto) 37.0, [place] % (Auto) 4.8, Eos % (Auto) 0.9, Baso % (Auto) 1.2, Neut # (Auto) 3.3, Lymph # (Auto) 2.2, [place] # (Auto) 0.3, Eos # (Auto) 0.1, Baso # (Auto) 0.1, Sodium 133 L, Potassium 3.9, Chloride 105, Carbon Dioxide 15 L, Anion Gap 16.9 H, BUN 19 H, Creatinine 1.80 H, Estimated Creat Clear 57, Estimated GFR 30 L, Est GFR ( Amer) 36 L, Glucose 89, Calcium 8.4, Total Bilirubin 0.7, AST 50 H, ALT 22, Alkaline Phosphatase 124, Total Protein 7.3, Albumin 3.9, Globulin 3.4 H, Albumin/Globulin Ratio 1.1, Lipase 56 I & O for Last 24 hours: Intake & Output 11/03/23 11/04/23 11/05/23 11/06/23 23:59 23:59 23:59 23:59 Weight 97.522 kg Constitutional Constitutional: no acute distress *Routine HEENT Exam Head: Present normocephalic and atraumatic Eye: Present PERRL; Absent scleral injection or conjunctivae pink ENT: Present mucous membranes moist and oropharynx clear *Routine Neck Exam Neck: Present supple and normal carotid upstroke; Absent carotid bruit, lymphadenopathy or thyromegaly *Routine Respiratory Exam Respiratory: Present rhonchi, wheezes and diminished air movement *Routine Cardiovascular Exam Cardiovascular: Present RRR *Routine Abdominal Exam Abdominal: Present soft and normoactive bowel sounds; Absent tenderness, distended, guarding or organomegaly *Routine Rectal Exam Rectal:: deferred *Routine Genitalia Exam Genitalia:: deferred *Routine Extremities Exam Extremities: Present edema ( trace bilateral legs), full ROM and pulses intact; Absent calf tenderness *Routine Neurological Exam Neurological: Present alert and oriented X3 H&P: Result Imaging and Cardiology EKG: Status: image reviewed by me and Preliminary report Assessment and Plan *Assessment and plan (1) Acute adrenal crisis: Status: Acute Category: Medical Code(s): E27.2 - Addisonian crisis (2) CLIFFORD (acute kidney injury): Status: Acute Category: Medical Code(s): N17.9 - Acute kidney failure, unspecified (3) Hyponatremia: Status: Acute Category: Medical Code(s): E87.1 - Hypo-osmolality and hyponatremia (4) Nausea vomiting and diarrhea: Status: Acute Category: Medical Code(s): R11.2 - Nausea with vomiting, unspecified; R19.7 - Diarrhea, unspecified (5) Panhypopituitarism: Status: Acute Category: Medical Code(s): E23.0 - Hypopituitarism (6) Asthma: Status: Acute Qualifiers: Asthma complication type: unspecified Asthma persistence: unspecified Asthma severity: unspecified severity Qualified Code(s): J45.909 - Unspecified asthma, uncomplicated Category: Medical Code(s): J45.909 - Unspecified asthma, uncomplicated Plan 53-year-old female with a history of panhypopituitarism, Diabetes insipidus, Asthma, presented today with nausea vomiting diarrhea for 1 day. Patient has not been able to tolerate her hydrocortisone oral, patient states that when she is like that, she is dehydrated typically requires a stress dose of steroids. On arrival presented hypotensive. Labs showed hyponatremia and CLIFFORD. Adrenal crisis suspected. Hydrocortisone IV push given. Discussed with ER for admission. Plan as follow: - Acute adrenal crisis. Suspected. Presented with N/V/D. to rule ou gastroenteritis: hyponatremia. Admit patient for medical services. Dispo MedSurg On continuous IV fluid. Normal saline at 125ml/hr. goal is 2 to 3 L Advance diet as tolerated as tolerated Hydrocortisone 100 mg IV push given at ER. Will continue with 50mg every 6h Goal to switch to p.o. when tolerated and symptom improved Monitor for blood pressure. Repeat CMP in the morning Watch for other electrolytes imbalance. -Acute kidney injury: Likely secondary to prerenal azotemia. Monitor for renal output Continue IV fluid resuscitation. Avoid nephrotoxic's medication History of panhypopituitarism and diabetes insipidus: Resume desmopressin Patient on hydrocortisone and prednisone. Will resume when tolerated p.o. History of asthma and hypothyroidism Reconcile and resume home regimen Lovenox for DVT prophylaxis. On Protonix for GI prophylaxis Full code Attending attestation Patient was seen and evaluated at the bedside myself, agree with PAKO note.
--- NOTE | 2023-11-06 22:31 | PC.NURSE ---
Report called to [facility] #[id number]
[2023-11-06 22:33] VITALS: BP 98/62; PULSE 90; RESP 20; TEMP 36.9; O2SAT 95
[2023-11-06 22:44] VITALS: BP 73/44; PULSE 66; RESP 17; TEMP 36.6; O2SAT 98; BMI 25.4
[2023-11-06] MEDS: 0.9 % SODIUM CHLORIDE 1000ML 1,000 ML 100 ML IV (23:08)
[2023-11-06 23:12] VITALS: BP 107/49
[2023-11-07 04:00] VITALS: BP 107/65; PULSE 81; RESP 17; TEMP 36.6; O2SAT 96; BMI 25.4
[2023-11-07] MEDS: HYDROCORTISONE SOD SUCCINATE 100MG VIAL 50 MG IV ×4 (04:23→21:19)
[2023-11-07] MEDS: 0.9 % SODIUM CHLORIDE 1000ML 1,000 ML 150 ML IV ×3 (06:07→21:19)
[2023-11-07 07:14] LABS: Mean Corpuscular Volume 87.2 fl (81-99); Monocytes # 0.1 K/mm3 (0.1-1.0); Platelet Count 257 K/mm3 (142-424); Red Cell Distribution Width 13.4 % (11.5-17.5)
[2023-11-07 07:16] LABS: Alanine Aminotransferase 42 U/L (12-78); Albumin Level 3.3 g/dl (3.5-5.0); Albumin/Globulin Ratio 1.1 (1.1-1.8); Alkaline Phosphatase 105 U/L (38-126); Anion Gap 13.3 mEq/L (5-15); Aspartate Amino Transferase 117 U/L (14-36); Bilirubin,Total 0.8 mg/dl (0.2-1.3); Blood Urea Nitrogen 21 mg/dl (7-17); Calcium 8.2 mg/dl (8.4-10.2); Carbon Dioxide 16 mmol/L (22.0-30.0); Chloride 110 mmol/L (98-107); Creatinine Clearance Estimated 59 mL/min (50-200); Estimated Glomerular Filt Rate 43 ml/min (>60); GFR (African American) 52 ML/MIN (>60); Glucose 120 mg/dl (74-100); Potassium 4.3 mmoL/L (3.5-5.1); Sodium 135 mmol/L (136-145); Total Protein,Serum 6.3 g/dl (6.3-8.2)
[2023-11-07 07:34] LABS: Basophils % 0.5 % (0.1-2.0); Hematocrit 40.4 % (37.0-47.0); Lymphocytes # 0.7 K/mm3 (0.7-4.5); Lymphocytes % 15.1 % (10-50); Mean Corpuscular HGB Conc 33.7 g/dL (31.8-35.4); Mean Corpuscular Hemoglobin 29.4 pg (27.0-31.2); Mean Platelet Volume 9.5 fl (7.4-10.4); Monocytes % 2.7 % (1.7-9.3); Neutrophils # 3.6 K/mm3 (1.8-7.8); Neutrophils % 81.6 % (37.0-80.0); Red Blood Count 4.63 M/mm3 (4.20-5.40); White Blood Count 4.4 K/mm3 (4.8-10.8)
[2023-11-07 07:37] VITALS: BP 129/92; PULSE 82; RESP 18; TEMP 36.4; O2SAT 98
[2023-11-07 07:40] LABS: Hemoglobin 13.6 g/dL (12.2-16.2)
[2023-11-07] MEDS: PANTOPRAZOLE 40MG TABLET 40 MG PO (08:37)
[2023-11-07] MEDS: ENOXAPARIN 40MG/0.4ML SYRINGE 40 MG SQ (08:37)
--- NOTE | 2023-11-07 08:37 | HMH.PHAINT1 ---
Pharmacy Intervention Comments: MEDICATION RECONCILIATION COMPLETED ON PATIENT USING EXTERNAL FILL HISTORY FROM PHARMACY. -ASIF CASTRO, ROXANNED
[2023-11-07] MEDS: ONDANSETRON 4MG/2ML VIAL 4 MG IV (10:51)
[2023-11-07] MEDS: FLUTICASONE PROP 50MCG NASAL SPRAY 16GM 1 SPRAY NS (11:26)
[2023-11-07] MEDS: LORATADINE 10MG TABLET 10 MG PO (11:27)
[2023-11-07] MEDS: CARVEDILOL 6.25MG TABLET 6.25 MG PO ×2 (11:39→20:03)
[2023-11-07] MEDS: ALUMINUM/MAGNESIUM/SIMETHICONE 30ML UDC 30 ML PO ×2 (13:11→17:49)
[2023-11-07] MEDS: DESMOPRESSIN 0.2 MG 1 EACH PO (13:12)
--- NOTE | 2023-11-07 15:09 | P.PN_ITS ---
Subjective *Date: 11/07/23 *Time: 15:09 Interval history: patient was seen and evaluated at the bedside. Still feels nauseated, No reported acute events overnight, denies chest pain, shortness of breath, vomiting, abdominal pain. Exam Data for Last 24 hours Vital signs and Labs for Last 24 Hours: Temp Pulse Resp BP Pulse Ox O2 Del Method 97.6 F 82 18 129/92 H 98 Room Air 11/07/23 07:37 11/07/23 07:37 11/07/23 07:37 11/07/23 07:37 11/07/23 07:37 11/07/23 13:00 Laboratory Results - last 24 hr 11/06/23 21:45: WBC 5.8, RBC 5.46 H, Hgb 15.3, Hct 47.2 H, MCV 86.5, MCH 28.1, MCHC 32.4, RDW 13.5, Plt Count 348, MPV 8.0, Neut % (Auto) 56.1, Lymph % (Auto) 37.0, [place] % (Auto) 4.8, Eos % (Auto) 0.9, Baso % (Auto) 1.2, Neut # (Auto) 3.3, Lymph # (Auto) 2.2, [place] # (Auto) 0.3, Eos # (Auto) 0.1, Baso # (Auto) 0.1, Sodium 133 L, Potassium 3.9, Chloride 105, Carbon Dioxide 15 L, Anion Gap 16.9 H , BUN 19 H, Creatinine 1.80 H, Estimated Creat Clear 57, Estimated GFR 30 L, Est GFR ( Amer) 36 L, Glucose 89, Calcium 8.4, Total Bilirubin 0.7, AST 50 H, ALT 22, Alkaline Phosphatase 124, Total Protein 7.3, Albumin 3.9, Globulin 3.4 H , Albumin/Globulin Ratio 1.1, Lipase 56 11/07/23 06:17: WBC 4.4 L, RBC 4.63, Hgb 13.6 D, Hct 40.4, MCV 87.2, MCH 29.4, MCHC 33.7, RDW 13.4, Plt Count 257 D, MPV 9.5, Neut % (Auto) 81.6 H, Lymph % (Auto) 15.1, [place] % (Auto) 2.7, Eos % (Auto) 0.0 L, Baso % (Auto) 0.5, Neut # (Auto) 3.6, Lymph # (Auto) 0.7, [place] # (Auto) 0.1, Eos # (Auto) 0.0, Baso # (Auto) 0.0, Sodium 135 L, Potassium 4.3, Chloride 110 H, Carbon Dioxide 16 L, Anion Gap 13.3, BUN 21 H, Creatinine 1.30 H D, Estimated Creat Clear 59, Estimated GFR 43 L, Est GFR ( Amer) 52 L D, Glucose 120 H D, Calcium 8.2 L, Magnesium 2.0, Total Bilirubin 0.8, AST 117 H D, ALT 42 D, Alkaline Phosphatase 105, Total Protein 6.3, Albumin 3.3 L D, Globulin 3.0, Albumin/Globulin Ratio 1.1 I & O for Last 24 hours: Intake & Output 11/04/23 11/05/23 11/06/23 11/07/23 23:59 23:59 23:59 23:59 Intake Total 1000 / 1000 1088 / 1088 Output Total 0 / 0 Balance 1000 / 1000 1088 / 1088 Weight 73.482 kg 73.482 kg Constitutional Constitutional: no acute distress *Routine HEENT Exam Head: Present normocephalic Eye: Present EOMI and PERRL ENT: Present mucous membranes moist *Routine Neck Exam Neck: Present supple; Absent lymphadenopathy *Routine Respiratory Exam Respiratory: Present CTA bilaterally *Routine Cardiovascular Exam Cardiovascular: Present RRR *Routine Abdominal Exam Abdominal: Present soft and normoactive bowel sounds; Absent tenderness *Routine Extremities Exam Extremities: Absent cyanosis, clubbing or edema *Routine Skin Exam Skin: Present warm; Absent rash *Routine Neurological Exam Neurological: Present alert and oriented X3 Assessment and Plan *Assessment and plan (1) Acute adrenal crisis: Status: Acute Category: Medical Code(s): E27.2 - Addisonian crisis (2) CLIFFORD (acute kidney injury): Status: Acute Category: Medical Code(s): N17.9 - Acute kidney failure, unspecified (3) Hyponatremia: Status: Acute Category: Medical Code(s): E87.1 - Hypo-osmolality and hyponatremia (4) Nausea vomiting and diarrhea: Status: Acute Category: Medical Code(s): R11.2 - Nausea with vomiting, unspecified; R19.7 - Diarrhea, unspecified (5) Panhypopituitarism: Status: Acute Category: Medical Code(s): E23.0 - Hypopituitarism (6) Asthma: Status: Acute Qualifiers: Asthma severity: unspecified severity Asthma persistence: unspecified Asthma complication type: unspecified Qualified Code(s): J45.909 - Unspecified asthma, uncomplicated Category: Medical Code(s): J45.909 - Unspecified asthma, uncomplicated Plan 53-year-old female with a history of panhypopituitarism, Diabetes insipidus, Asthma, presented today with nausea vomiting diarrhea for 1 day. Patient has not been able to tolerate her hydrocortisone oral, patient states that when she is like that, she is dehydrated typically requires a stress dose of steroids. On arrival presented hypotensive. Labs showed hyponatremia and CLIFFORD. Adrenal crisis suspected. Hydrocortisone IV push given. Discussed with ER for admission. Plan as follow: - Acute adrenal crisis. Suspected. Presented with N/V/D. to rule ou gastroenteritis: hyponatremia. Admit patient for medical services. Dispo MedSurg On continuous IV fluid. Normal saline at 125ml/hr. goal is 2 to 3 L Advance diet as tolerated as tolerated Hydrocortisone 100 mg IV push given at ER. Will continue with 50mg every 6h Goal to switch to p.o. when tolerated and symptom improved Monitor for blood pressure. Repeat CMP in the morning Watch for other electrolytes imbalance. -Acute kidney injury: improving Likely secondary to prerenal azotemia. Monitor for renal output Continue IV fluid resuscitation. Avoid nephrotoxic's medication History of panhypopituitarism and diabetes insipidus: Resume desmopressin Patient on hydrocortisone and prednisone. Will resume when tolerated p.o. History of asthma and hypothyroidism Reconcile and resume home regimen Lovenox for DVT prophylaxis. On Protonix for GI prophylaxis Full code likely DC tomorrow, continue above treatment plan
[2023-11-07 15:55] VITALS: BP 84/62; PULSE 84; RESP 20; TEMP 36.8; O2SAT 96
--- NOTE | 2023-11-07 17:27 | PC.NURSE ---
Patient is alert, oriented x4. States shes feeling a lot better, no nausea noted at this time. Appetite is improving, tolerating some foods. Denies any pain or discomfort at this time.
[2023-11-07] MEDS: MONTELUKAST SODIUM 10MG TAB 10 MG PO (17:49)
[2023-11-07 20:00] VITALS: BP 132/74; PULSE 77; RESP 18; TEMP 36.6; O2SAT 95
[2023-11-07] MEDS: TRAZODONE 50MG TABLET 100 MG PO (20:03)
[2023-11-08] MEDS: 0.9 % SODIUM CHLORIDE 1000ML 1,000 ML 150 ML IV (03:10)
[2023-11-08] MEDS: HYDROCORTISONE SOD SUCCINATE 100MG VIAL 50 MG IV ×2 (03:10→09:30)
[2023-11-08 04:00] VITALS: BP 122/69; PULSE 65; RESP 18; TEMP 36.3; O2SAT 96; BMI 40.6
[2023-11-08] MEDS: SYMBICORT 1 EACH PO (05:50)
[2023-11-08] MEDS: TIOTROPIUM 18MCG/PUFF INHALER 1 CAP IH (05:53)
[2023-11-08] MEDS: LEVOTHYROXINE 175MCG (0.175MG) TAB 175 MCG PO (06:01)
[2023-11-08 08:00] VITALS: BP 125/73; PULSE 71; RESP 18; TEMP 36.5; O2SAT 98; O2SAT 99
[2023-11-08] MEDS: CARVEDILOL 6.25MG TABLET 6.25 MG PO (09:26)
[2023-11-08] MEDS: FLUTICASONE PROP 50MCG NASAL SPRAY 16GM 1 SPRAY NS (09:27)
[2023-11-08] MEDS: TOPIRAMATE 25MG TABLET 50 MG PO (09:29)
[2023-11-08] MEDS: PANTOPRAZOLE 40MG TABLET 40 MG PO (09:29)
[2023-11-08] MEDS: ENOXAPARIN 40MG/0.4ML SYRINGE 40 MG SQ (10:06)
--- NOTE | 2023-11-08 10:33 | EXP.DC.SUM ---
General Admission date:: 11/06/23 Discharge date: 11/08/23 HPI HPI HPI: This is a 53-year-old female with a history of panhypopituitarism, Diabetes insipidus, Asthma, presented today with nausea vomiting diarrhea for 1 day. Patient has not been able to tolerate her hydrocortisone oral, patient states that when she is like that, she is dehydrated typically requires a stress dose of steroids. Present with nonspecific signs and symptoms including nausea, vomiting, anorexia. ?She denies any significant abdominal pain, fever. Denies any positive sick contacts denies any other significant past medical problems. Admitted for further treatment and management. Hospital Course Hospital Course Hospital Course: bedside on the day of discharge. Patient is stable for discharge. Patient wishes to be discharged. All patient questions were answered and patient was given time to ask questions. Patient was discharged in stable condition. Patient understands that she can return to ER in case of any sudden changes in health. Total time spent on DC - 38 mins 53-year-old female with a history of panhypopituitarism, Diabetes insipidus, Asthma, presented today with nausea vomiting diarrhea for 1 day. Patient has not been able to tolerate her hydrocortisone oral, patient states that when she is like that, she is dehydrated typically requires a stress dose of steroids. On arrival presented hypotensive. Labs showed hyponatremia and CLIFFORD. Adrenal crisis suspected. Hydrocortisone IV push given. Discussed with ER for admission. Plan as follow: - Acute adrenal crisis. Suspected. Presented with N/V/D. to rule ou gastroenteritis: hyponatremia. Improved -Acute kidney injury: improved History of panhypopituitarism and diabetes insipidus: Resume desmopressin Patient on hydrocortisone and prednisone. Will resume when tolerated p.o. History of asthma and hypothyroidism Reconcile and resume home regimen Lovenox for DVT prophylaxis. On Protonix for GI prophylaxis Full code Exam Data for Last 24 hours Vital signs and Labs for Last 24 Hours: Temp Pulse Resp BP Pulse Ox O2 Del Method 97.7 F 71 18 125/73 98 Room Air 11/08/23 08:00 11/08/23 08:00 11/08/23 08:00 11/08/23 08:00 11/08/23 08:00 11/08/23 08:00 I & O for Last 24 hours: Intake & Output 11/05/23 11/06/23 11/07/23 11/08/23 23:59 23:59 23:59 23:59 Intake Total 999 / 999 261 / 261 1290 / 1290 Output Total 0 / 0 0 / 0 Balance 999 / 999 261 / 261 1290 / 1290 Weight 73.482 kg 73.482 kg 117.509 kg Constitutional Constitutional: no acute distress *Routine HEENT Exam Head: Present normocephalic Eye: Present EOMI and PERRL ENT: Present mucous membranes moist *Routine Neck Exam Neck: Present supple; Absent lymphadenopathy *Routine Respiratory Exam Respiratory: Present CTA bilaterally *Routine Cardiovascular Exam Cardiovascular: Present RRR *Routine Abdominal Exam Abdominal: Present soft and normoactive bowel sounds; Absent tenderness *Routine Extremities Exam Extremities: Absent cyanosis, clubbing or edema *Routine Skin Exam Skin: Present warm; Absent rash *Routine Neurological Exam Neurological: Present alert and oriented X3 DS: Diagnosis Discharge Diagnosis (1) Acute adrenal crisis: Status: Acute Code(s): E27.2 - Addisonian crisis (2) CLIFFORD (acute kidney injury): Status: Acute Code(s): N17.9 - Acute kidney failure, unspecified (3) Hyponatremia: Status: Acute Code(s): E87.1 - Hypo-osmolality and hyponatremia (4) Nausea vomiting and diarrhea: Status: Acute Code(s): R11.2 - Nausea with vomiting, unspecified; R19.7 - Diarrhea, unspecified (5) Panhypopituitarism: Status: Acute Code(s): E23.0 - Hypopituitarism (6) Asthma: Status: Acute Code(s): J45.909 - Unspecified asthma, uncomplicated Qualifiers: Asthma severity: unspecified severity Asthma persistence: unspecified Asthma complication type: unspecified Qualified Code(s): J45.909 - Unspecified asthma, uncomplicated Meds Home Medications and Allergies Home Medications Medication Instructions Recorded Confirmed Type albuterol sulfate 90 mcg/actuation 1 puff inhalation Q6HP PRN 10/21/17 11/07/23 History aerosol inhaler (ProAir HFA) Shortness Of Breath levothyroxine 175 mcg tablet 175 mcg PO DAILY hypothyroidism 10/21/17 11/06/23 History (Levoxyl) albuterol sulfate 5 mg/mL(0.5 %) 2.5 mg inhalation Q6HP PRN 11/25/19 11/07/23 History solution for nebulization Shortness Of Breath budesonide-formoterol HFA 160 2 puff inhalation BID Breathing 11/25/19 11/06/23 History mcg-4.5 mcg/actuation aerosol Problems inhaler (Symbicort) cetirizine 10 mg capsule (Zyrtec) 10 mg PO DAILY Allergy Symptoms 06/08/22 11/06/23 History montelukast 10 mg tablet 10 mg PO PM Asthma 06/09/22 11/07/23 History desmopressin 0.2 mg tablet 0.2 mg PO DIRECTED 11/07/23 11/07/23 History escitalopram oxalate 20 mg tablet 20 mg PO DAILY Mood 11/07/23 11/07/23 History fluticasone propionate 50 1 spray intranasal DAILY Allergy 11/07/23 11/07/23 History mcg/actuation nasal Symptoms spray,suspension hydrocortisone 10 mg tablet 10 mg PO BID Adrenal Insufficiency 11/07/23 11/07/23 History nebivolol 5 mg tablet 5 mg PO DAILY High Blood Pressure 11/07/23 11/07/23 History somatropin 12 mg (36 unit) 0 mg SQ DIRECTED 11/07/23 11/07/23 History injection cartridge (Humatrope) tiotropium bromide 1.25 2 puff inhalation DAILY Breathing 11/07/23 11/07/23 History mcg/actuation mist for inhalation Problems (Spiriva Respimat) topiramate 50 mg tablet 50 mg PO DAILY Migraine 11/07/23 11/07/23 History trazodone 50 mg tablet 100 mg PO HS Sleep 11/07/23 11/07/23 History New Prescriptions to Start Prescriptions: Allergies Allergy/AdvReac Type Severity Reaction Status Date / Time codeine Allergy Verified 01/22/23 09:42 levofloxacin [From Levaquin] Allergy Verified 01/22/23 09:42 Discharge Plan Disposition Patient Disposition: Home, Self-Care Condition: Good Follow up Plan Follow up with: Gerardo Erickson MD [Primary Care Provider] - 2 weeks (Please call the office for a follow up appt. The office is closed today) Prescriptions/Medication Reconciliation: Continued levothyroxine [Levoxyl] 175 mcg tablet 175 mcg PO DAILY albuterol sulfate [ProAir HFA] 90 mcg/actuation HFA aerosol inhaler 1 puff INHALATION Q6HP PRN (Reason: Shortness Of Breath) budesonide-formoterol [Symbicort] 160-4.5 mcg/actuation HFA aerosol inhaler 2 puff INHALATION BID albuterol sulfate 5 mg/mL solution for nebulization 2.5 mg INHALATION Q6HP PRN (Reason: Shortness Of Breath) Zyrtec 10 mg Capsule 10 mg PO DAILY montelukast 10 mg Tablet 10 mg PO PM trazodone 50 mg tablet 100 mg PO HS hydrocortisone 10 mg tablet 10 mg PO BID Humatrope 12 mg (36 unit) cartridge 0 mg SQ DIRECTED fluticasone propionate 50 mcg/actuation spray,suspension 1 spray INTRANASAL DAILY escitalopram oxalate 20 mg tablet 20 mg PO DAILY topiramate 50 mg tablet 50 mg PO DAILY nebivolol 5 mg tablet 5 mg PO DAILY Spiriva Respimat 1.25 mcg/actuation mist 2 puff INHALATION DAILY desmopressin 0.2 mg tablet 0.2 mg PO DIRECTED Rx Instructions: TAKE 1 TABLET IN THE MORNING AND 1-2 TABLETS IN THE EVENING Problem Reconciliation Problems Reviewed?: Yes Patient Discharge Instructions ACTIVITY: Ambulate as tolerated DIET: advance to your usual diet Patient Instructions: Adrenal Crisis, DI for Dehydration -- Adult, Nausea and Vomiting-Adult, DI for Acute Kidney Injury Providers Primary Care Provider: Gerardo Erickson Admit Provider: Shant Milian Attending Provider: Shant Milian
--- NOTE | 2023-11-12 15:48 | CARE MANAGER ---
Called and spoke with patient regarding recent discharge. Patient states she is doing better. Had no concerns at time of call. Had been to see PCP today.
== END 2023-11-08 10:41 | disposition home or self-care (01) ==
LOC: ER 22:07 → 2ND 22:40
PROVIDERS: Nurse Practitioner Family; Admitting Provider Internal Medicine; Emergency Provider Student in an Organized Health Care Education/Training Program; PCP Internal Medicine; Visit Provider Internal Medicine
DX: N17.9 Acute kidney failure, unspecified (principal); E27.2 Addisonian crisis; R11.2 Nausea with vomiting, unspecified; R19.7 Diarrhea, unspecified; E23.0 Hypopituitarism; J45.909 Unspecified asthma, uncomplicated; Z79.899 Other long term (current) drug therapy; I10 Essential (primary) hypertension; E23.2 Diabetes insipidus
CPT/HCPCS: 36415; 80053; 83690; 83735; 85025; 99291; G0378; J2405

== ENCOUNTER 2023-11-12 14:47 | Outpatient (CLI) | payer BC, SELFPAY ==
[2023-11-12 16:21] LABS: Blood Urea Nitrogen 5 mg/dl (7-17); Calcium 8.5 mg/dl (8.4-10.2); Carbon Dioxide 32 mmol/L (22.0-30.0); Chloride 105 mmol/L (98-107); Estimated Glomerular Filt Rate 76 ml/min (>60); GFR (African American) 92 ML/MIN (>60); Glucose 66 mg/dl (74-100); Sodium 143 mmol/L (136-145)
== END 2023-11-12 23:59 ==
LOC: LAB.DROPOF 14:48
PROVIDERS: PCP Internal Medicine; Visit Provider Internal Medicine
DX: A09 Infectious gastroenteritis and colitis, unspecified (principal); E86.0 Dehydration; N17.9 Acute kidney failure, unspecified; Z68.34 Body mass index [BMI] 34.0-34.9, adult; R79.89 Other specified abnormal findings of blood chemistry
CPT/HCPCS: 80048

== ENCOUNTER 2023-12-10 10:56 | Outpatient (CLI) | payer BC, SELFPAY ==
--- NOTE | 2023-12-10 11:06 | XR_ITS ---
FINAL REPORT CLINICAL HISTORY: RT HIP PAIN COMPARISON: None FINDINGS: RIGHT HIP 3 views of the right hip including an AP view of the pelvis demonstrate no acute fracture or dislocation. There is moderate degenerative change of the right hip. The visualized bony structures are well aligned. No soft tissue abnormality is seen. IMPRESSION: Moderate degenerative change without acute bony abnormality. Reviewed, Interpreted and Dictated by Carlos Alberto Peraza III, MD Transcribed by Pau Avery Authenticated and [facility]
--- NOTE | 2023-12-10 11:06 | XR_ITS ---
FINAL REPORT CLINICAL HISTORY: RT SCIATICA COMPARISON: None FINDINGS: 5 views of the lumbar spine were obtained. There is no evidence of fracture or dislocation. The vertebral alignment is normal. There is mild degenerative change with small osteophytes. No paraspinous soft tissue abnormalities identified. IMPRESSION: Mild degenerative changes without acute bony abnormality. Reviewed, Interpreted and Dictated by Carlos Alberto Peraza III, MD Transcribed by Pau Avery Authenticated and [facility]
== END 2023-12-10 23:59 ==
LOC: RAD 10:57
PROVIDERS: PCP Internal Medicine; Visit Provider Internal Medicine
DX: M25.551 Pain in right hip (principal); M54.31 Sciatica, right side
CPT/HCPCS: 72110; 73502

== ENCOUNTER 2024-01-18 15:03 | Outpatient (CLI) | payer BC, SELFPAY ==
--- NOTE | 2024-01-18 15:08 | XR_ITS ---
FINAL REPORT CLINICAL HISTORY: FALL AT WORK, NECK PAIN ANS STIFFNESS COMPARISON: None FINDINGS: CERVICAL SPINE 5 views were obtained. There is no acute fracture or malalignment. Inter-vertebral disc and vertebral body heights are preserved. Cervical lordosis is preserved. Facet joints are properly aligned. There is mild degenerative change. IMPRESSION: No acute process. Reviewed, Interpreted and Dictated by Carlos Alberto Peraza III, MD Transcribed by Pau Avery Authenticated and . [facility]
== END 2024-01-18 23:59 | disposition home or self-care (01) ==
LOC: RAD 15:04
PROVIDERS: PCP Internal Medicine; Visit Provider Internal Medicine
DX: M54.2 Cervicalgia (principal); W01.0XXA Fall on same level from slipping, tripping and stumbling without subsequent striking against object, initial encounter
CPT/HCPCS: 72050